=== PATIENT | female | born 1960 | race Caucasian/White ===

== ENCOUNTER 2021-08-31 11:07 | Outpatient (CLI) | payer MEDICAID, SELFPAY ==
--- NOTE | 2021-08-31 11:18 | XR_ITS ---
WS: [id number] SHOULDER RIGHT TECHNIQUE: 3 views of the right shoulder CLINICAL INFORMATION: M67.912 - Unspecified disorder of synovium and tendon, le... COMPARISON: None. FINDINGS: Multiple small lytic lesions involving the clavicle with mild cortical irregularity distally. Recomme nd further evaluation with CT. Moderate degenerative arthritis at the AC joint. Mild narrowing of sub acromial space. Normal glenohumeral joint. Visualized right lung is well aerated. XR/XR shoulder RT min 2V* [id number] IMPRESSION: 1. Multiple small lytic lesions involving the mid and distal clavicle with mil d cortical irregularity distally. Recommend further evaluation with CT. Differe ntial considerations include primary bone neoplasm, metastatic disease or multi ple myeloma. 2. Slight cortical irregularity in the distal clavicle suspicious for nondispl aced pathologic fracture. No displacement. Recommend further evaluation with CT . 3. Moderate degenerative arthritis AC joint with mild downsloping acromion.
--- NOTE | 2021-08-31 11:26 | XR_ITS ---
WS: [id number] LUMBAR SPINE TECHNIQUE: 3 views of the lumbar spine CLINICAL INFORMATION: S39.012A - Strain of muscle, fascia and tendon of lower b... COMPARISON: None. FINDINGS: L5 appears partially sacralized for the purposes of this dictation. Slight retrolisthesis L3 on L4 an d L4 on L5. No acute compression fractures. Moderate facet arthropathy L4-5 and L5-S1. Disc space vance rowing worse L5-S1. Ossification of the iliolumbar ligaments L5-S1 XR/XR lumbar spine 2-3V* [id number] IMPRESSION: 1. L5 appears partially sacralized for the purposes of this dictation. No acut e compression fractures. 2. Slight retrolisthesis L3 on L4 and L4 on L5. 3. Moderate facet arthropathy L4-L5 and L5-S1 4. Ossification of the iliolumbar ligaments L5-S1. 5. Disc space narrowing worse L5-S1.
== END 2021-08-31 11:08 | disposition home or self-care (01) ==
LOC: RAD 11:18
PROVIDERS: PCP Registered Nurse; Visit Provider Registered Nurse
DX: S39.012A Strain of muscle, fascia and tendon of lower back, initial encounter (principal); X58.XXXA Exposure to other specified factors, initial encounter; M67.912 Unspecified disorder of synovium and tendon, left shoulder; M47.816 Spondylosis without myelopathy or radiculopathy, lumbar region; M47.817 Spondylosis without myelopathy or radiculopathy, lumbosacral region; M19.011 Primary osteoarthritis, right shoulder
CPT/HCPCS: 72100; 73030

== ENCOUNTER 2021-09-03 14:11 | Outpatient (CLI) | payer MEDICAID, SELFPAY ==
--- NOTE | 2021-09-03 14:00 | CT_ITS ---
WS: [email or web address] CT SHOULDER, NONCONTRAST HISTORY: M89.9 - Disorder of bone, unspecified, RIGHT shoulder pain for 5 days. No trauma. History of smoking. Technique: All CT scans at [facility] use at least one of these dose optimization techniques: automated exposure control; mA and/or kV adjustment per patient size (includes targeted exams where dose is matched to clinical indication); or iterative reconstruction. DLP: 494.71 mGy.cm COMPARISON: Shoulder radiograph 08/31/2021. Numerous lytic lesions are identified throughout the majority of the RIGHT clavicle. Pathological fra ctures are identified. Several of these lytic areas extend through the cortex. No definite extension of soft tissue. There are additional lytic lesions within the scapula, humeral head, glenoid and the adjacent ribs. A small portion of the cervical spine is included and I suspect there are lytic change s within the cervical spine. Mildly hyperemic lymph nodes along the RIGHT cervical chain. Area of increased density within the RIG HT breast. This may be dense fibroglandular tissue or neoplasm incompletely visualized. The visualize d RIGHT upper lobe of is clear. CT/CT shoulder RT wo con* [id number] IMPRESSION: 1. Numerous lytic lesions within the bones of the RIGHT shoulder, visualized r ibs and likely the cervical spine also. Highly suspicious for metastatic diseas e with pathological fractures. 2. There are small indeterminate RIGHT cervical chain lymph nodes. Indetermina te soft tissue mass in the RIGHT breast. Evaluation for possible breast neoplas m should be considered. Recommend diagnostic mammogram evaluation. Additional e valuation of the chest, abdomen and pelvis by CT with contrast is likely necess kj. Bone scan imaging should be performed.
== END 2021-09-03 14:12 | disposition home or self-care (01) ==
LOC: RAD 14:15
PROVIDERS: PCP Registered Nurse; Visit Provider Registered Nurse
DX: M89.9 Disorder of bone, unspecified (principal); I10 Essential (primary) hypertension; N63.10 Unspecified lump in the right breast, unspecified quadrant
CPT/HCPCS: 73200; 80053; 85025; 85651; 86140; 86304

== ENCOUNTER 2021-09-11 09:59 | Outpatient (CLI) | payer OTHER, SELFPAY ==
--- NOTE | 2021-09-11 | US_ITS ---
WS: [email or web address] DIAGNOSTIC BILATERAL DIGITAL MAMMOGRAM WITH CAD Bilateral breast ultrasound, limited HISTORY: RT BREAST MASS X 2 COMPARISON: None available. TECHNIQUE: Bilateral craniocaudad, mediolateral oblique, and mediolateral views are submitted. Spot compression views RIGHT breast. Computer aided detection utilized. Breast composition: There are scattered areas of fibroglandular density. There is a large area of architectural distortion and increased density centered in the posterior superior RIGHT breast. Contiguous soft tissue spiculations involve an area measuring 9.1 x 7.6 cm. This mass is centered in the upper inner quadrant of the RIGHT breast. There may be 2 or 3 separate lesions or one branching contiguous irregular shaped mass. There is significant architectural distortion and tethering. No definite adenopathy on the RIGHT. There is a high density nodule in the upper inner quadrant of the LEFT breast which is probably a cyst or lymph node. This is well-circumscribed. Bilateral breast ultrasound, limited. Breast ultrasound is limited and very difficult. Ultrasound had to be performed with the patient in her wheelchair. RIGHT breast: Beginning at 12:00, 5 cm from the nipple is a spiculated irregular shaped mass with increased vascularity. At 1:00 there is a large area of shadowing with increased vascularity. At 1:00 is masses more isoechoic to the remaining normal breast tissue. This area measures at least 3.6 x 2.0 cm. LEFT breast: At 12:00 there is a small complex cyst posterior to the subareolar region. The posterior nodule was not visualized and may be a lymph node. MM/[place] [id number] IMPRESSION: BI-RADS: 5-Highly Suggestive of Malignancy FOLLOW UP: Biopsy Recommended 1. There is a large spiculated mass centered in the upper outer quadrant of the RIGHT breast from 12-3 o'clock. Significant distortion and tethering. Spiculations extend between the masses. This is either one large mass or several masses that have become confluent. The ultrasound did identify lesions suspicious for malignancy but the extent of tumor is better visualized by mammography. 2. No lymphadenopathy identified. 3. High density nodule in the posterior LEFT breast probably a complex cyst or lymph node. Cannot identify this by ultrasound. 4. Very difficult evaluation by ultrasound as patient requested to be done within the wheelchair due to difficulty being mobile. Notified Kayla Rueda MD at 09/11/2021 12:58 PM. DAVE
--- NOTE | 2021-09-11 10:15 | MM_ITS ---
WS: [email or web address] DIAGNOSTIC BILATERAL DIGITAL MAMMOGRAM WITH CAD Bilateral breast ultrasound, limited HISTORY: RT BREAST MASS X 2 COMPARISON: None available. TECHNIQUE: Bilateral craniocaudad, mediolateral oblique, and mediolateral views are submitted. Spot c ompression views RIGHT breast. Computer aided detection utilized. Breast composition: There are scattered areas of fibroglandular density. There is a large area of arc hitectural distortion and increased density centered in the posterior superior RIGHT breast. Contiguo us soft tissue spiculations involve an area measuring 9.1 x 7.6 cm. This mass is centered in the upp er inner quadrant of the RIGHT breast. There may be 2 or 3 separate lesions or one branching contiguo us irregular shaped mass. There is significant architectural distortion and tethering. No definite ad enopathy on the RIGHT. There is a high density nodule in the upper inner quadrant of the LEFT breast which is probably a cys t or lymph node. This is well-circumscribed. Bilateral breast ultrasound, limited. Breast ultrasound is limited and very difficult. Ultrasound had to be performed with the patient in h er wheelchair. RIGHT breast: Beginning at 12:00, 5 cm from the nipple is a spiculated irregular shaped mass with inc reased vascularity. At 1:00 there is a large area of shadowing with increased vascularity. At 1:00 is masses more isoechoic to the remaining normal breast tissue. This area measures at least 3.6 x 2.0 c m. LEFT breast: At 12:00 there is a small complex cyst posterior to the subareolar region. The posterior nodule was not visualized and may be a lymph node. MM/[place] [id number] IMPRESSION: BI-RADS: 5-Highly Suggestive of Malignancy FOLLOW UP: Biopsy Recommended 1. There is a large spiculated mass centered in the upper outer quadrant of th e RIGHT breast from 12-3 o'clock. Significant distortion and tethering. Spicula tions extend between the masses. This is either one large mass or several jayshree s that have become confluent. The ultrasound did identify lesions suspicious fo r malignancy but the extent of tumor is better visualized by mammography. 2. No lymphadenopathy identified. 3. High density nodule in the posterior LEFT breast probably a complex cyst or lymph node. Cannot identify this by ultrasound. 4. Very difficult evaluation by ultrasound as patient requested to be done wit hin the wheelchair due to difficulty being mobile. Notified Kayla Rueda MD at 09/11/2021 12:58 PM.
== END 2021-09-11 10:00 | disposition home or self-care (01) ==
LOC: RADSHAW 10:02
PROVIDERS: PCP Registered Nurse
DX: N63.22 Unspecified lump in the left breast, upper inner quadrant (principal); N63.15 Unspecified lump in the right breast, overlapping quadrants
CPT/HCPCS: 76642; 77066

== ENCOUNTER 2021-09-27 07:47 | Outpatient (CLI) | payer MEDICAID, SELFPAY ==
--- NOTE | 2021-09-27 | US_ITS ---
WS: [email or web address] ULTRASOUND-GUIDED RIGHT BREAST BIOPSY HISTORY: LUMP IN BREAST COMPARISON: 09/11/2021 mammogram and ultrasound. Procedure, risks and complications are explained to the patient. Medications are reviewed. Consent is obtained. Spiculated irregular mass in the upper-outer quadrant of the RIGHT breast. This may be separate confl uent masses or a single spiculated branching mass. Biopsy will be performed at the 12:00 component an d the 1:00 component of this mass. Masses are localized with ultrasound. Skin is cleansed with Chlora Prep and anesthetized with 1% buffered lidocaine. Small dermatome is made. Under sterile conditions e ach mass is biopsied with a 14-gauge Achieve needle. Only 2 core biopsies are performed of each mass. There was significant bleeding after the biopsy at 12:00. No bleeding after the mass at 1:00. Materi al placed in formalin and sent to pathology for review. No complications encountered. Breast tissue marker (Bard ultrasound enhanced ribbon): Yes, clips are placed within each mass. Patient left the radiology suite with no complications. Patient is instructed to return to [facility] or [facility] with any concerns. US/[place] [id number] IMPRESSION: 1. Core needle biopsy mass at 12:00. PATHOLOGY: Invasive ductal carcinoma. Biomarkers to be reported separately. RECOMMENDATION: Follow-up with breast surgeon and oncology. 2. Uncomplicated core needle biopsy mass at 1:00. PATHOLOGY: Invasive ductal carcinoma. Biomarkers to be reported separately. RECOMMENDATION: Follow-up with breast surgeon and oncology.
--- NOTE | 2021-09-27 07:55 | US_ITS ---
WS: [email or web address] ULTRASOUND-GUIDED RIGHT BREAST BIOPSY HISTORY: LUMP IN BREAST COMPARISON: 09/11/2021 mammogram and ultrasound. Procedure, risks and complications are explained to the patient. Medications are reviewed. Consent is obtained. Spiculated irregular mass in the upper-outer quadrant of the RIGHT breast. This may be separate confl uent masses or a single spiculated branching mass. Biopsy will be performed at the 12:00 component an d the 1:00 component of this mass. Masses are localized with ultrasound. Skin is cleansed with Chlora Prep and anesthetized with 1% buffered lidocaine. Small dermatome is made. Under sterile conditions e ach mass is biopsied with a 14-gauge Achieve needle. Only 2 core biopsies are performed of each mass. There was significant bleeding after the biopsy at 12:00. No bleeding after the mass at 1:00. Materi al placed in formalin and sent to pathology for review. No complications encountered. Breast tissue marker (Bard ultrasound enhanced ribbon): Yes, clips are placed within each mass. Patient left the radiology suite with no complications. Patient is instructed to return to [facility] [place] or [facility] with any concerns. US/[place] [id number] IMPRESSION: 1. Core needle biopsy mass at 12:00. PATHOLOGY: Invasive ductal carcinoma. Biomarkers to be reported separately. RECOMMENDATION: Follow-up with breast surgeon and oncology. 2. Uncomplicated core needle biopsy mass at 1:00. PATHOLOGY: Invasive ductal carcinoma. Biomarkers to be reported separately. RECOMMENDATION: Follow-up with breast surgeon and oncology.
[2021-10-04 13:35] LABS: Miscellaneous Test See Scanned Lab Rpt
== END 2021-09-27 07:48 | disposition home or self-care (01) ==
LOC: RAD 07:49
PROVIDERS: PCP Registered Nurse; Visit Provider Family Medicine
DX: C50.811 Malignant neoplasm of overlapping sites of right female breast (principal); C50.211 Malignant neoplasm of upper-inner quadrant of right female breast
CPT/HCPCS: 19083; 19084; 88305; 88361; 88374

== ENCOUNTER 2021-10-03 11:18 | Outpatient (CLI) | payer MEDICAID, SELFPAY ==
--- NOTE | 2021-10-03 17:50 | ONC CON_ITS ---
Dr. Vega New Patient Note Patient: Isi Ross Unit #: [id number]: 1960 Dicatated By: Matthew Vega M.D.Date of Visit: Oct 03, 2021 Onc MED New Patient/Consult Referring Physician: JULIANNE CAMARA A.P.N. Chief Complaint: Breast cancer. History of Present Illness: This is a 61-year-old woman with grade 3 invasive ductal carcinoma of the right breast, denovo stage IV by clinical evaluation (T3, N0, M1), ER/KY positive and HER-2/todd negative. In June 2021 she had presented with complaints of right shoulder pain. She also had become aware of a swelling in her right breast, thought to be most likely a cyst. In August 2021 she presented with lower back pain and pain in the area between her shoulder blades. X-rays of the right shoulder and lumbar spine on 08/31/2021 showed multiple small lytic lesions in the mid and distal right clavicle suspicious for metastatic disease or myeloma. There were degenerative changes in the lumbar spine. Her CT of the right shoulder on 09/03/2021 showed numerous lytic lesions within the bones of the right shoulder, visualized ribs, and likely cervical spine, highly suspicious for metastatic disease. Diagnostic mammogram/ultrasound of the right breast on 09/11/2021 showed a large area of architectural distortion in the posterior superior right breast with contiguous soft tissue spiculations involving an area measuring 9.1 x 7.6 cm. A high density nodule in the upper inner quadrant of the left breast was thought to be most likely a cyst or lymph node. On 09/27/2021 she underwent ultrasound-guided biopsies of the right breast at 1:00 and at 12:00. The 12:00 lesion showed grade 1 invasive ductal carcinoma. The 1:00 lesion showed grade 3 invasive ductal carcinoma. Breast prognostic profile on the 1:00 lesion showed ER positive at 98% and KY positive at 95%. The tumor was negative for overexpression of HER-2/todd, 1+ by IHC and amplification ratio by FISH of 1.1 with 2.2 HER-2 copies/cell. The Ki-67 was just slightly high at 15%. In the meantime, restaging PET/CT on 09/18/2021 showed extensive heterogeneous activity throughout the axial and appendicular skeleton correlating with mixed sclerotic and cystic appearance on the CT scan, consistent with bony metastatic involvement. There was low-level abnormal activity associated with a right breast mass consistent with low-grade breast cancer. There was additional finding of low-level activity associated with what appeared to be some thickening or soft tissue mass involving the bowel in the right lower quadrant of the abdomen at the level of the terminal ileum or cecum. She is seen now for further management. Her main complaint has been the right shoulder pain, though she has been getting reasonably good relief taking tramadol once or twice a day. However, this morning she woke up with pain in her neck and she had subsequently developed more severe pain in the area between her shoulder blades. At times it has been excruciating. She still has pretty good energy, though it has not been normal. Her ECOG score is 1. She has good appetite. Her weight is down just a few pounds. She has not had fever or night sweats. She has always had a tendency to get a little hot, but she has not had actual hot flashes. She has not had sore mouth or throat, and she does not complain of cough. She has not been having shortness of breath. She has had some chest discomfort following the biopsy, but she otherwise has not had chest pain. She has no GI or complaints. She does not complain of headache or dizziness, and she has no focal neurologic symptoms. Past Medical History: Her medical history consists of history of COVID-19 virus infection in March 2021, hypertension, positional vertigo, and vitamin D deficiency. Past Surgical History: Her surgical/procedural history includes ultrasound-guided biopsy of the right breast in 2021 and brain surgery to remove posttraumatic blood clot at age 12. Medications: Acetaminophen 2 Tablet (of 500 mg) Oral q 4 hours, Baclofen 1 Tablet (of 10 mg) Oral b.i.d., Cephalexin (500 mg) Capsule Oral Take as Directed, diazePAM (2 mg) Tablet Oral Take as Directed, Ibuprofen (600 mg) Tablet Oral Take as Directed, Lisinopril 1 Tablet (of 10 mg) Oral daily, traMADol HCl 1 Tablet (of 50 mg) Oral b.i.d. PRN Allergies: Amoxicillin Social History: Ms. Ross is . 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 She had smoked all her life , but off and on, and less than 1 pack of cigarettes daily. She quit smoking cigarettes 7 years ago, and she has since then smoked e-cigarettes. She has only rare alcohol use. Family History: Parents are still living, both at age 79 and both are in good health. Two sisters also are in good health. Review Of Symptoms: Constitutional - Her energy is pretty good, though not normal. She is limiting her activity. Her appetite is good. Her weight is down a couple pounds. She has not had fever or night sweats. She has always been prone to getting hot, but she does not have actual hot flashes. ECOG score is 1, Eyes - No change in vision, ENMT - No hearing loss or tinnitus. No sinus congestion/drainage. No mouth sores. No sore throat or difficulty swallowing, Hematologic/Lymphatic - She has developed significant bruising at her biopsy site. She has had no other bleeding manifestations, Respiratory - No shortness of breath. No cough. No pleuritic pain or hemoptysis, Cardiovascular - She is having some discomfort in the right chest area following the recent biopsy. She otherwise has not had chest pain and she has no palpitations, Gastrointestinal - No nausea or vomiting. No heartburn or acid reflux. No diarrhea or constipation. No blood in the stool or black stools, Genitourinary (F) - No dysuria or hematuria. No urinary frequency. No urgency or incontinence, Musculoskeletal - She has been having pain in the right shoulder area and today she developed some new pain at the bottom of her neck/upper back, Integumentary - No skin rash or other skin changes, Neurologic - No headache or dizziness. No numbness or tingling. No other focal neurologic symptoms, Psychiatric - No anxiety or depression. She has had some difficulty sleeping with the pain. Vital Signs: Performed on Oct 03, 2021 13:23: 64.50 in, 172/97 mm(hg) (HIGH), Performed on Oct 03, 2021 13:22: 5, 9, 43.47 (HIGH), 2.19 sq.m, 97 %, 93 /min, 16 /min, 98.5 F, and 257.2 lbs (HIGH). Physical Examination: Constitutional - She has limited mobility, but she otherwise looks pretty good generally, Eyes - Sclerae nonicteric. Conjunctivae clear, ENMT - No lesions noted in the oral cavity, Neck - No mass or thyromegaly, Hematologic/Lymphatic - No cervical or clavicular adenopathy, Respiratory - Lungs are clear with good air movement bilaterally, Cardiovascular - Heart rhythm is regular. There is no murmur, gallop, or rub noted, Breasts - There is a fairly large area of ecchymosis in the right breast. There is a mass palpable in the superior right breast extending to the right of the midline. It measures approximately 6 cm in diameter. The left breast shows no mass. There is no axillary adenopathy noted, Abdomen - Moderately distended. Liver and spleen are not enlarged. There is no abdominal mass or ascites noted and there is no inguinal adenopathy, Back/Spine - There is focal bony tenderness at the level of the lower cervical spine, Extremities - No edema. Pedal pulses are palpable bilaterally, Integumentary - No rashes. No suspicious skin lesions noted, Neurologic - No focal neurologic deficits noted. Lab/Imaging: Her laboratory studies from 09/03/2021 included CBC showing hemoglobin 13.2 g, white blood count 11,400, and platelet count 367,000. Comprehensive metabolic profile showed normal renal function with BUN 13 and creatinine 0.8 mg/dL. Bilirubin was normal at 0.5 mg/dL, and the SGOT and SGPT levels were normal. The alkaline phosphatase was elevated at 225/105 IU/L. Problem List: 1. Grade 3 invasive ductal carcinoma of the right breast, by clinical evaluation stage IV (T3, N0, M1), ER/KY positive and HER-2 negative. 2. Recent onset of hypertension. 3. Vitamin D deficiency. 4. History of positional vertigo. 5. History of COVID-19 virus infection in March 2021. Problems Addressed with this Encounter and Plan: 1. Patient with grade 3 invasive ductal carcinoma of the right breast, ER/KY positive and HER-2 negative. By clinical evaluation she has denovo stage IV disease (T3, N0, M1) with PET/CT evidence of extensive metastatic bone involvement. She is symptomatic in the right shoulder area and more significantly now in the lower cervical/upper thoracic spine area. The PET/CT findings and images were reviewed with the patient. I also reviewed the biopsy results, and we discussed the clinical implications. She has metastatic breast cancer with PET/CT evidence of extensive bone involvement. I am particularly concerned about the pain she is having in her neck and upper back, and I am going to request further evaluation of that area with MRI, as she potentially would benefit with palliative radiation to that area and to the right shoulder. In the meantime, I will proceed with arrangements to begin systemic therapy with letrozole 2.5 mg daily in combination with ribociclib 600 mg twice daily, subject to verification of insurance coverage. She also will need to begin monthly denosumab injections for the metastatic bone involvement. I did review potential side effects with the aromatase inhibitor, including hot flashes, mood changes, osteoporosis, and joint pain, among others. Potential side effects with the ribociclib include fatigue, diarrhea, low blood counts, hepatic dysfunction, and cardiac arrhythmia, among others. She will have baseline EKG today. I will have her see Dr. Yap when the MRI has been completed. In the meantime, she is given a prescription for oxycodone 10 mg to take up to 4 times daily as needed. 2. There was also PET/CT evidence of low level activity in association with apparent thickening or soft tissue mass involving the bowel in the right lower quadrant of the abdomen at the level of the terminal ileum or cecum. The significance of that finding is uncertain, but in this setting and with no associated symptoms, further evaluation will be deferred. Signed By: Matthew Vega M.D. <<Signature on File>>
== END 2021-10-03 11:19 | disposition home or self-care (01) ==
PROVIDERS: PCP Registered Nurse; Visit Provider Internal Medicine Medical Oncology
DX: C50.211 Malignant neoplasm of upper-inner quadrant of right female breast (principal); I10 Essential (primary) hypertension; E55.9 Vitamin D deficiency, unspecified; R42 Dizziness and giddiness; F17.290 Nicotine dependence, other tobacco product, uncomplicated; Z79.899 Other long term (current) drug therapy; Z86.16 Personal history of COVID-19
CPT/HCPCS: 99205

== ENCOUNTER 2021-10-31 09:23 | Outpatient (CLI) | payer MEDICAID, SELFPAY ==
[2021-10-31 10:43] LABS: Basophils # 0.1 10^3/uL (0.0-0.1); Basophils % 0.9 %; Eosinophils # 0.1 10^3/uL (0.0-0.8); Eosinophils % 1.2 %; Hematocrit 44.2 % (37.0-47.0); Hemoglobin 14.1 g/dL (11.5-15.3); Lymphocytes # 3.7 10^3/uL (0.8-4.8); Lymphocytes % 34.5 %; Mean Corpuscular HGB Conc 31.9 g/dL (30.0-36.0); Mean Corpuscular Hemoglobin 28.1 pg (28.0-34.0); Mean Platelet Volume 9.9 fL (7.4-10.4); Monocytes # 0.5 10^3/uL (0.2-0.9); Monocytes % 4.3 %; Neutrophils # 6.23 10^3/uL (1.8-7.7); Neutrophils % 57.5 %; Nucleated Red Blood Cells % 0 %; Platelet Count 362 10^3/cmm (130-400); Red Blood Count 5.02 10^6/uL (4.1-5.3); Red Cell Distribution Width 14.7 % (12.1-15.1); White Blood Count 10.8 10^3/uL (4.0-10.0)
[2021-10-31 11:21] LABS: Alanine Aminotransferase 116 U/L (0-33); Albumin Level 4.1 g/dL (3.5-5.2); Alkaline Phosphatase 444 IU/L (35-105); Anion Gap 19.8 (5-19); Aspartate Amino Transferase 96 U/L (0-32); Blood Urea Nitrogen 13 mg/dL (6-20); Calcium 10.3 mg/dL (8.5-10.5); Carbon Dioxide 20 mmol/L (22-29); Chloride 95 mmol/L (98-107); Globulin 3.6 g/dL (1.3-4.6); Glomerular Filtration Rate 64.1 mL/min (90-130); Glucose 148 mg/dL (65-115); Osmolality Calculated 275 mOsm/kg (285-295); Potassium 3.8 mmol/L (3.5-5.1); Sodium 131 mmol/L (136-145); Total Bilirubin 0.7 mg/dL (0.15-1.2); Total Protein 7.7 g/dL (6.6-8.7)
[2021-10-31 11:42] LABS: CA 15-3 495.9 U/mL (0-25)
[2021-10-31] MEDS: denosumab 120 mg SDV SUBCUT (12:18)
--- NOTE | 2021-11-04 20:59 | ONC FU_ITS ---
Shoshana Clark Progress Note Patient: Isi Ross Unit #: [id number]: 1960 Dicatated By: Shoshana Clark N.P.Date of Visit:Oct 31, 2021 Onc MED Follow-up/Prog Note Chief Complaint: Breast cancer. History of Present Illness: This is a 61-year-old woman with grade 3 invasive ductal carcinoma of the right breast, denovo stage IV by clinical evaluation (T3, N0, M1), ER/NY positive and HER-2/todd negative. In June 2021 she had presented with complaints of right shoulder pain. She also had become aware of a swelling in her right breast, thought to be most likely a cyst. In August 2021 she presented with lower back pain and pain in the area between her shoulder blades. X-rays of the right shoulder and lumbar spine on 08/31/2021 showed multiple small lytic lesions in the mid and distal right clavicle suspicious for metastatic disease or myeloma. There were degenerative changes in the lumbar spine. Her CT of the right shoulder on 09/03/2021 showed numerous lytic lesions within the bones of the right shoulder, visualized ribs, and likely cervical spine, highly suspicious for metastatic disease. Diagnostic mammogram/ultrasound of the right breast on 09/11/2021 showed a large area of architectural distortion in the posterior superior right breast with contiguous soft tissue spiculations involving an area measuring 9.1 x 7.6 cm. A high density nodule in the upper inner quadrant of the left breast was thought to be most likely a cyst or lymph node. On 09/27/2021 she underwent ultrasound-guided biopsies of the right breast at 1:00 and at 12:00. The 12:00 lesion showed grade 1 invasive ductal carcinoma. The 1:00 lesion showed grade 3 invasive ductal carcinoma. Breast prognostic profile on the 1:00 lesion showed ER positive at 98% and [place] positive at 95%. The tumor was negative for overexpression of HER-2/todd, 1+ by IHC and amplification ratio by FISH of 1.1 with 2.2 HER-2 copies/cell. The Ki-67 was just slightly high at 15%. In the meantime, restaging PET/CT on 09/18/2021 showed extensive heterogeneous activity throughout the axial and appendicular skeleton correlating with mixed sclerotic and cystic appearance on the CT scan, consistent with bony metastatic involvement. There was low-level abnormal activity associated with a right breast mass consistent with low-grade breast cancer. There was additional finding of low-level activity associated with what appeared to be some thickening or soft tissue mass involving the bowel in the right lower quadrant of the abdomen at the level of the terminal ileum or cecum. Patient presents today for education on arrival cycle of ribociclib and letrozole. She states that she has been feeling pretty good. Her appetite has been good. She denies fever, chills, night sweats. No shortness of breath, cough, chest pain. No GI or problems. She continues to have shoulder pain and upper back pain that is controlled with her current pain medications. She denies headache or dizziness. Review Of Symptoms: see above. Past Medical History: History of COVID-19 virus infection in March 2021 Hypertension Positional vertigo Vitamin D deficiency Past Surgical History: Ultrasound-guided biopsy of the right breast in 2021 Brain surgery to remove posttraumatic blood clot in 1972 Allergies: Amoxicillin Medications: Baclofen 1 Tablet (of 10 mg) Oral b.i.d. Lisinopril 1 Tablet (of 10 mg) Oral daily oxyCODONE HCl 1 Tablet (of 10 mg) Oral four times a day PRN Vitamin D 1 Tablet Oral daily Family History: Parents are still living, both at age 79 and both are in good health. Two sisters also are in good health. Social History: Ms. Ross is . Ms. Ross no longer smokes. She drinks occasionally. She has indicated exposure to the following products: e-cigarettes. 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 She had smoked all her life , but off and on, and less than 1 pack of cigarettes daily. She quit smoking cigarettes 7 years ago, and she has since then smoked e-cigarettes. She has only rare alcohol use. Physical Examination: Performed on Oct 31, 2021 15:11: Height - 64.50 in, Weight - 242.2 lbs (LOW), BSA - 2.13 sq.m, BMI - 40.93 (HIGH), Temperature - 98.6 F, Pulse - 99 /min, Respiration - 16 /min, BP - 150/88 mm(hg) (HIGH), O2 Sat - 97 %, Pain - 0, and Fatigue - 5. Performance Status: 0 - Fully active, able to carry on all predisease activities without restrictions. (ECOG) Constitutional Alert, cooperative, oriented. Mood and affect appropriate. Appears close to chronological age. Well nourished. Well developed. Head Normocephalic; no scars. Respiratory Lungs are clear to auscultation without rhonchi or wheezing. Cardiovascular Regular rate and rhythm of heart without murmurs, gallops or rubs. Abdomen Non-tender, non-distended, no masses, ascites or hepatosplenomegaly. Good bowel sounds. No guarding or rebound tenderness. Extremities No edema Musculoskeletal No tenderness or swelling, normal range of motion without obvious weakness. Psychiatric Alert and oriented times three. Coherent speech. Verbalizes understanding of our discussions today. Laboratory: Test performed on Oct 31, 2021 10:00 Sodium 131 mmol/L Potassium 3.8 mmol/L Chloride 95 mmol/L CO2 20 mmol/L Anion Gap 19.8 BUN 13 mg/dL Creatinine 0.9 mg/dL Cr Clearance (Est) 116.73 mL/min eGFR 64.1 mL/min Glucose 148 mg/dL Osmolality - Calculated 275 mOsm/kg Calcium 10.3 mg/dL Protein, Total 7.7 g/dL Albumin 4.1 g/dL Globulin 3.6 g/dL Bilirubin, Total 0.7 mg/dL ALT (SGPT) 116 U/L AST (SGOT) 96 U/L Alkaline Phosphatase 444 IU/L WBC 10.8 10 3/uL RBC 5.02 10 6/uL HGB 14.1 g/dL HCT 44.2 % MCV 88.0 fl MCH 28.1 pg MCHC 31.9 g/dL RDW 14.7 % Platelet Count 362 10 3/cmm MPV 9.9 fL Neutrophils 6.23 10 3/uL Lymphocytes 3.7 10 3/uL Monocytes 0.5 10 3/uL Eosinophils 0.1 10 3/uL Basophils 0.1 10 3/uL Neutrophil % 57.5 % Lymphocyte % 34.5 % Monocyte % 4.3 % Eosinophil % 1.2 % Basophils % 0.9 % NRBC % 0 % CA 15-3 495.9 U/mL Impression: 1. Grade 3 invasive ductal carcinoma of the right breast, by clinical evaluation stage IV (T3, N0, M1), ER/[place] positive and HER-2 negative. 2. Recent onset of hypertension. 3. Vitamin D deficiency. 4. History of positional vertigo. 5. History of COVID-19 virus infection in March 2021. Plan: 1. Patient with grade 3 invasive ductal carcinoma of the right breast, ER/NY positive and HER-2 negative. By clinical evaluation she has denovo stage IV disease (T3, N0, M1) with PET/CT evidence of extensive metastatic bone involvement. She is symptomatic in the right shoulder area and more significantly now in the lower cervical/upper thoracic spine area. The PET/CT findings and images were reviewed with the patient. Dr. Vega also reviewed the biopsy results, and we discussed the clinical implications. She has metastatic breast cancer with PET/CT evidence of extensive bone involvement. He is particularly concerned about the pain she is having in her neck and upper back, and she will have further evaluation of that area with MRI, as she potentially would benefit with palliative radiation to that area and to the right shoulder. She presents today for education on letrozole 2.5 mg daily in combination with ribociclib 600 mg twice daily. Handouts on both medications were provided. Potential side effects of an aromatase inhibitor were discussed including hot flashes, mood changes, and joint pain. We also discussed side effects of ribociclib including fatigue, diarrhea, low blood counts and cardiac arrhythmias which will be monitored with the EKGs every 2 weeks x 4 weeks. She will also receive her first injection denosumab today for metastatic bone involvement. A referral has been placed for patient to see Dr. Yap in radiation oncology for metastatic bone pain. 2. There was also PET/CT evidence of low level activity in association with apparent thickening or soft tissue mass involving the bowel in the right lower quadrant of the abdomen at the level of the terminal ileum or cecum. The significance of that finding is uncertain, but in this setting and with no associated symptoms, further evaluation will be deferred. Signed By: Shoshana Clark N.P. <<Signature on File>>
== END 2021-10-31 09:24 | disposition home or self-care (01) ==
PROVIDERS: PCP Registered Nurse; Visit Provider Nurse Practitioner Family
DX: C50.911 Malignant neoplasm of unspecified site of right female breast (principal); Z17.0 Estrogen receptor positive status [ER+]; C79.51 Secondary malignant neoplasm of bone; I10 Essential (primary) hypertension; E55.9 Vitamin D deficiency, unspecified; Z86.16 Personal history of COVID-19; Z79.899 Other long term (current) drug therapy
CPT/HCPCS: 36415; 80053; 85025; 86300; 96372; 99215; J0897

== ENCOUNTER 2021-11-09 10:29 | Outpatient (CLI) | payer MEDICAID, SELFPAY ==
--- NOTE | 2021-11-09 13:04 | ECG_ITS ---
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 Measurements Intervals [place] Rate: 78 P: 20 CA: 177 QRS: 14 QRSD: 103 T: -11 QT: 367 QTc: 419 Interpretive Statements SINUS RHYTHM No previous ECG available for comparison Electronically Signed On 11-09-2021 16:10:21 CDT by Good Hopkins M.D. [id number]
== END 2021-11-09 10:30 | disposition home or self-care (01) ==
PROVIDERS: PCP Registered Nurse; Visit Provider Internal Medicine Medical Oncology
DX: C50.411 Malignant neoplasm of upper-outer quadrant of right female breast (principal); C79.51 Secondary malignant neoplasm of bone
CPT/HCPCS: 93005

== ENCOUNTER 2021-11-21 07:49 | Outpatient (CLI) | payer MEDICAID, SELFPAY ==
[2021-11-21 08:59] LABS: Basophils % 1.1 %; Eosinophils % 0.8 %; Hematocrit 39.2 % (37.0-47.0); Hemoglobin 12.7 g/dL (11.5-15.3); Lymphocytes # 1.9 10^3/uL (0.8-4.8); Mean Corpuscular HGB Conc 32.4 g/dL (30.0-36.0); Mean Corpuscular Volume 89.5 fl (81-99); Monocytes # 0.2 10^3/uL (0.2-0.9); Neutrophils # 1.62 10^3/uL (1.8-7.7); Neutrophils % 43.3 %; Nucleated Red Blood Cells % 0 %; Platelet Count 233 10^3/cmm (130-400); Red Blood Count 4.38 10^6/uL (4.1-5.3); Red Cell Distribution Width 17.2 % (12.1-15.1); White Blood Count 3.7 10^3/uL (4.0-10.0)
[2021-11-21 09:30] LABS: Alanine Aminotransferase 26 U/L (0-33); Albumin Level 4.1 g/dL (3.5-5.2); Alkaline Phosphatase 347 IU/L (35-105); Anion Gap 18.5 (5-19); Aspartate Amino Transferase 29 U/L (0-32); Blood Urea Nitrogen 14 mg/dL (6-20); Calcium 8.7 mg/dL (8.5-10.5); Carbon Dioxide 20 mmol/L (22-29); Chloride 100 mmol/L (98-107); Chol HDL Ratio 3.41 mg/dL (0.0-4.40); Cholesterol 150 mg/dL (0-200); Globulin 3.8 g/dL (1.3-4.6); Glomerular Filtration Rate 64.1 mL/min (90-130); Glucose 122 mg/dL (65-115); HDL Cholesterol 44 mg/dL (60-100); LDL Cholesterol Calculated 82 mg/dL (50-129); LDL HDL Ratio 1.86 RATIO (0.00-3.22); Osmolality Calculated 280 mOsm/kg (285-295); Potassium 4.5 mmol/L (3.5-5.1); Sodium 134 mmol/L (136-145); Total Bilirubin 0.5 mg/dL (0.15-1.2); Total Protein 7.9 g/dL (6.6-8.7); Triglycerides 118 mg/dL (0-150)
[2021-11-21 09:52] LABS: CA 15-3 332.8 U/mL (0-25)
--- NOTE | 2021-11-26 09:50 | ONC FU_ITS ---
Shoshana Clark Progress Note Patient: Isi Ross Unit #: [id number]: 1960 Dicatated By: Shoshana Clark N.P.Date of Visit:Nov 21, 2021 Onc MED Follow-up/Prog Note Chief Complaint: Breast cancer. History of Present Illness: This is a 61-year-old woman with grade 3 invasive ductal carcinoma of the right breast, denovo stage IV by clinical evaluation (T3, N0, M1), ER/IL positive and HER-2/todd negative. In June 2021 she had presented with complaints of right shoulder pain. She also had become aware of a swelling in her right breast, thought to be most likely a cyst. In August 2021 she presented with lower back pain and pain in the area between her shoulder blades. X-rays of the right shoulder and lumbar spine on 08/31/2021 showed multiple small lytic lesions in the mid and distal right clavicle suspicious for metastatic disease or myeloma. There were degenerative changes in the lumbar spine. Her CT of the right shoulder on 09/03/2021 showed numerous lytic lesions within the bones of the right shoulder, visualized ribs, and likely cervical spine, highly suspicious for metastatic disease. Diagnostic mammogram/ultrasound of the right breast on 09/11/2021 showed a large area of architectural distortion in the posterior superior right breast with contiguous soft tissue spiculations involving an area measuring 9.1 x 7.6 cm. A high density nodule in the upper inner quadrant of the left breast was thought to be most likely a cyst or lymph node. On 09/27/2021 she underwent ultrasound-guided biopsies of the right breast at 1:00 and at 12:00. The 12:00 lesion showed grade 1 invasive ductal carcinoma. The 1:00 lesion showed grade 3 invasive ductal carcinoma. Breast prognostic profile on the 1:00 lesion showed ER positive at 98% and IL positive at 95%. The tumor was negative for overexpression of HER-2/todd, 1+ by IHC and amplification ratio by FISH of 1.1 with 2.2 HER-2 copies/cell. The Ki-67 was just slightly high at 15%. In the meantime, restaging PET/CT on 09/18/2021 showed extensive heterogeneous activity throughout the axial and appendicular skeleton correlating with mixed sclerotic and cystic appearance on the CT scan, consistent with bony metastatic involvement. There was low-level abnormal activity associated with a right breast mass consistent with low-grade breast cancer. There was additional finding of low-level activity associated with what appeared to be some thickening or soft tissue mass involving the bowel in the right lower quadrant of the abdomen at the level of the terminal ileum or cecum. Patient presents today for follow-up. She states that she has been doing fairly well. She she complains week. Her appetite has been good. She denies fever, chills, night sweats. She is experiencing symptoms of allergies such as clear nasal drainage. She denies shortness of breath, cough, chest pain. He denies nausea or vomiting. But she has been having some trouble with constipation which is controlled with [id number] medications. No urinary symptoms. She has some pain in the right chest wall that radiates over to the axilla. She is started letrozole 2.5 mg in combination with ribociclib 600 mg daily. She states that she is tolerating that well. Review Of Symptoms: See above. Past Medical History: History of COVID-19 virus infection in March 2021 Hypertension Positional vertigo Vitamin D deficiency Past Surgical History: Ultrasound-guided biopsy of the right breast in 2021 Brain surgery to remove posttraumatic blood clot in 1972 Allergies: Amoxicillin Medications: Baclofen 1 Tablet (of 10 mg) Oral b.i.d. Lisinopril 1 Tablet (of 10 mg) Oral daily Magnesium Citrate Solution Oral Take as Directed Ondansetron 1 Tablet (of 4 mg) Tablet Dispersable Oral q 8 hours PRN oxyCODONE HCl 1 Tablet (of 10 mg) Oral four times a day PRN Senna S 2 Tablet Oral b.i.d. Vitamin D 1 Tablet Oral daily Family History: Parents are still living, both at age 79 and both are in good health. Two sisters also are in good health. Social History: Ms. Ross is . Ms. Ross no longer smokes. She drinks occasionally. She has indicated exposure to the following products: e-cigarettes. 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 She had smoked all her life , but off and on, and less than 1 pack of cigarettes daily. She quit smoking cigarettes 7 years ago, and she has since then smoked e-cigarettes. She has only rare alcohol use. Physical Examination: Performed on Nov 21, 2021 09:45: Height - 64.50 in, Weight - 243.4 lbs (HIGH), BSA - 2.14 sq.m, BMI - 41.13 (HIGH), Temperature - 98.0 F (LOW), Pulse - 97 /min, Respiration - 18 /min, BP - 154/85 mm(hg) (HIGH), O2 Sat - 96 %, Pain - 6, and Fatigue - 7. Performance Status: 0 - Fully active, able to carry on all predisease activities without restrictions. (ECOG) Constitutional Alert, cooperative, oriented. Mood and affect appropriate. Appears close to chronological age. Well nourished. Well developed. Head Normocephalic; no scars. Respiratory Lungs are clear to auscultation without rhonchi or wheezing. Cardiovascular Regular rate and rhythm of heart without murmurs, gallops or rubs. Abdomen Non-tender, non-distended, no masses, ascites or hepatosplenomegaly. Good bowel sounds. No guarding or rebound tenderness. Musculoskeletal Tenderness right chest wall that radiates to axilla Psychiatric Alert and oriented times three. Coherent speech. Verbalizes understanding of our discussions today. Laboratory: Test performed on Nov 21, 2021 08:28 Cholesterol, Total 150 mg/dL Sodium 134 mmol/L Potassium 4.5 mmol/L Triglycerides 118 mg/dL Chloride 100 mmol/L LDL Cholesterol 82 mg/dL CO2 20 mmol/L Anion Gap 18.5 HDL Cholesterol 44 mg/dL BUN 14 mg/dL Cholesterol/HDL Ratio 3.41 mg/dL Creatinine 0.9 mg/dL LDL / HDL Ratio 1.86 RATIO Cr Clearance (Est) 117.3100 mL/min eGFR 64.1 mL/min Glucose 122 mg/dL Osmolality - Calculated 280 mOsm/kg Calcium 8.7 mg/dL Protein, Total 7.9 g/dL Albumin 4.1 g/dL Globulin 3.8 g/dL Bilirubin, Total 0.5 mg/dL ALT (SGPT) 26 U/L AST (SGOT) 29 U/L Alkaline Phosphatase 347 IU/L WBC 3.7 10 3/uL RBC 4.38 10 6/uL HGB 12.7 g/dL HCT 39.2 % MCV 89.5 fl MCH 29.0 pg MCHC 32.4 g/dL RDW 17.2 % Platelet Count 233 10 3/cmm MPV 9.0 fL Neutrophils 1.62 10 3/uL Lymphocytes 1.9 10 3/uL Monocytes 0.2 10 3/uL Eosinophils 0.0 10 3/uL Basophils 0.0 10 3/uL Neutrophil % 43.3 % Lymphocyte % 50.0 % Monocyte % 4.0 % Eosinophil % 0.8 % Basophils % 1.1 % NRBC % 0 % CA 15-3 332.8 U/mL Impression: 1. Grade 3 invasive ductal carcinoma of the right breast, by clinical evaluation stage IV (T3, N0, M1), ER/IL positive and HER-2 negative. 2. Recent onset of hypertension. 3. Vitamin D deficiency. 4. History of positional vertigo. 5. History of COVID-19 virus infection in March 2021. Plan: 1. Patient with grade 3 invasive ductal carcinoma of the right breast, ER/IL positive and HER-2 negative. By clinical evaluation she has denovo stage IV disease (T3, N0, M1) with PET/CT evidence of extensive metastatic bone involvement. She is symptomatic in the right shoulder area and more significantly now in the lower cervical/upper thoracic spine area. The PET/CT findings and images were reviewed with the patient. Dr. Vega also reviewed the biopsy results, and we discussed the clinical implications. She has metastatic breast cancer with PET/CT evidence of extensive bone involvement. He is particularly concerned about the pain she is having in her neck and upper back, and she will have further evaluation of that area with MRI, as she potentially would benefit with palliative radiation to that area and to the right shoulder. Patient presents today for follow-up after starting letrozole 2.5 mg and ribociclib 600 mg p.o. daily. Ribociclin is on day schedule. She is tolerating it well. At this point her labs are stable. She has had EKG performed every 2 weeks and will receive them every 2 weeks for 4 weeks. Her last EKG was normal without any changes noted. 2. There was also PET/CT evidence of low level activity in association with apparent thickening or soft tissue mass involving the bowel in the right lower quadrant of the abdomen at the level of the terminal ileum or cecum. The significance of that finding is uncertain, but in this setting and with no associated symptoms, further evaluation will be deferred. ADDENDUM: ribociclib dosing corrected Signed By: Shoshana Clark N.P. <<Signature on File>>
== END 2021-11-21 07:50 | disposition home or self-care (01) ==
LOC: ONCMED 07:52
PROVIDERS: PCP Registered Nurse; Visit Provider Nurse Practitioner Family
DX: C50.911 Malignant neoplasm of unspecified site of right female breast (principal); Z17.0 Estrogen receptor positive status [ER+]; Z79.51 Long term (current) use of inhaled steroids; I10 Essential (primary) hypertension; E55.9 Vitamin D deficiency, unspecified; Z86.16 Personal history of COVID-19; Z79.899 Other long term (current) drug therapy
CPT/HCPCS: 36415; 80053; 80061; 85025; 86300; 99214

== ENCOUNTER 2021-12-05 14:29 | Oncology outpatient (recurring) (ONCR) | payer MEDICAID, SELFPAY ==
[2021-12-05] MEDS: denosumab 120 mg SDV SUBCUT (14:30)
[2021-12-05 16:50] VITALS: BP 140/68; PULSE 74; RESP 18; TEMP 36.6
--- NOTE | 2021-12-05 16:55 | ECG_ITS ---
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 Measurements Intervals [place] Rate: 89 P: 22 ME: 175 QRS: 23 QRSD: 90 T: -5 QT: 350 QTc: 428 Interpretive Statements SINUS RHYTHM Compared to ECG 11/09/2021 12:24:03 No significant changes Electronically Signed On 12-05-2021 19:45:33 CDT by Maria Del Carmen Colon M.D. [id number]
== END 2022-01-01 23:59 | disposition home or self-care (01) ==
PROVIDERS: PCP Registered Nurse; Visit Provider Nurse Practitioner Family
DX: Z51.11 Encounter for antineoplastic chemotherapy (principal); C50.411 Malignant neoplasm of upper-outer quadrant of right female breast; C79.51 Secondary malignant neoplasm of bone; Z17.0 Estrogen receptor positive status [ER+]; Z79.818 Long term (current) use of other agents affecting estrogen receptors and estrogen levels; Z79.899 Other long term (current) drug therapy
CPT/HCPCS: 93005; 96372; 96401; 99215; 99999; J0897

== ENCOUNTER 2022-01-31 10:00 | Oncology outpatient (recurring) (ONCR) | payer MEDICAID, SELFPAY ==
[2022-01-02 10:04] LABS: Basophils # 0.1 10^3/uL (0.0-0.1); Basophils % 1.8 %; Eosinophils # 0.1 10^3/uL (0.0-0.8); Eosinophils % 2.1 %; Hematocrit 35.9 % (37.0-47.0); Hemoglobin 11.8 g/dL (11.5-15.3); Lymphocytes # 1.5 10^3/uL (0.8-4.8); Lymphocytes % 38.2 %; Mean Corpuscular HGB Conc 32.9 g/dL (30.0-36.0); Mean Corpuscular Hemoglobin 31.9 pg (28.0-34.0); Mean Platelet Volume 8.5 fL (7.4-10.4); Monocytes # 0.2 10^3/uL (0.2-0.9); Monocytes % 4.7 %; Neutrophils # 2.01 10^3/uL (1.8-7.7); Neutrophils % 52.7 %; Nucleated Red Blood Cells % 0 %; Platelet Count 290 10^3/cmm (130-400); Red Cell Distribution Width 23.3 % (12.1-15.1); White Blood Count 3.8 10^3/uL (4.0-10.0)
[2022-01-02 10:41] LABS: Alanine Aminotransferase 25 U/L (0-33); Albumin Level 4.3 g/dL (3.5-5.2); Alkaline Phosphatase 151 IU/L (35-105); Aspartate Amino Transferase 26 U/L (0-32); Blood Urea Nitrogen 10 mg/dL (6-20); Calcium 9.4 mg/dL (8.5-10.5); Carbon Dioxide 23 mmol/L (22-29); Chloride 104 mmol/L (98-107); Glomerular Filtration Rate 73.4 mL/min (90-130); Glucose 137 mg/dL (65-115); Osmolality Calculated 287 mOsm/kg (285-295); Sodium 138 mmol/L (136-145); Total Bilirubin 0.7 mg/dL (0.15-1.2); Total Protein 7.3 g/dL (6.6-8.7)
[2022-01-02 10:42] LABS: Slide Review Slide Review Perform
[2022-01-02] MEDS: denosumab 120 mg SDV SUBCUT (13:20)
[2022-01-02 13:26] VITALS: BP 173/81; PULSE 71; RESP 18; TEMP 35.9; O2SAT 99
[2022-01-31 11:26] LABS: Alanine Aminotransferase 23 U/L (0-33); Albumin Level 4.2 g/dL (3.5-5.2); Alkaline Phosphatase 140 IU/L (35-105); Anion Gap 14.8 (5-19); Aspartate Amino Transferase 21 U/L (0-32); Blood Urea Nitrogen 13 mg/dL (6-20); Calcium 8.9 mg/dL (8.5-10.5); Carbon Dioxide 26 mmol/L (22-29); Chloride 99 mmol/L (98-107); Globulin 3.3 g/dL (1.3-4.6); Glomerular Filtration Rate 85.6 mL/min (90-130); Glucose 115 mg/dL (65-115); Osmolality Calculated 283 mOsm/kg (285-295); Potassium 3.8 mmol/L (3.5-5.1); Sodium 136 mmol/L (136-145); Total Bilirubin 0.4 mg/dL (0.15-1.2); Total Protein 7.5 g/dL (6.6-8.7)
[2022-01-31] MEDS: denosumab 120 mg SDV SUBCUT (12:12)
[2022-01-31 12:15] VITALS: BP 130/77; PULSE 86; RESP 18; TEMP 36.5; O2SAT 98
[2022-01-31 12:21] LABS: Basophils # 0.2 10^3/uL (0.0-0.1); Basophils % 1.9 %; Eosinophils # 0.1 10^3/uL (0.0-0.8); Eosinophils % 1.3 %; Hematocrit 37.3 % (37.0-47.0); Hemoglobin 12.7 g/dL (11.5-15.3); Lymphocytes # 3.3 10^3/uL (0.8-4.8); Lymphocytes % 38.8 %; Mean Corpuscular Hemoglobin 33.6 pg (28.0-34.0); Mean Corpuscular Volume 98.7 fl (81-99); Mean Platelet Volume 9.1 fL (7.4-10.4); Monocytes # 0.9 10^3/uL (0.2-0.9); Monocytes % 10.8 %; Neutrophils # 3.81 10^3/uL (1.8-7.7); Neutrophils % 44.7 %; Nucleated Red Blood Cells % 0.2 %; Platelet Count 326 10^3/cmm (130-400); Red Blood Count 3.78 10^6/uL (4.1-5.3); Red Cell Distribution Width 20.8 % (12.1-15.1); White Blood Count 8.5 10^3/uL (4.0-10.0)
== END 2022-01-31 23:59 | disposition home or self-care (01) ==
LOC: ONCMED 10:10
PROVIDERS: PCP Registered Nurse; Visit Provider Nurse Practitioner Family
DX: C50.411 Malignant neoplasm of upper-outer quadrant of right female breast (principal); Z17.0 Estrogen receptor positive status [ER+]; C79.51 Secondary malignant neoplasm of bone
CPT/HCPCS: 36415; 80053; 85025; 86300; 96372; 99214; 99215; J0897

== ENCOUNTER 2022-04-03 15:00 | Oncology outpatient (recurring) (ONCR) | payer MEDICAID, SELFPAY ==
[2022-03-04 12:48] LABS: Basophils # 0.1 10^3/uL (0.0-0.1); Eosinophils # 0.1 10^3/uL (0.0-0.8); Eosinophils % 2.5 %; Hematocrit 30.6 % (37.0-47.0); Hemoglobin 9.9 g/dL (11.5-15.3); Lymphocytes # 1.3 10^3/uL (0.8-4.8); Lymphocytes % 35.1 %; Mean Corpuscular HGB Conc 32.4 g/dL (30.0-36.0); Mean Corpuscular Hemoglobin 35.7 pg (28.0-34.0); Mean Corpuscular Volume 110.5 fl (81-99); Mean Platelet Volume 8.8 fL (7.4-10.4); Monocytes # 0.3 10^3/uL (0.2-0.9); Neutrophils # 1.79 10^3/uL (1.8-7.7); Neutrophils % 50.3 %; Nucleated Red Blood Cells % 0 %; Platelet Count 277 10^3/cmm (130-400); Red Blood Count 2.77 10^6/uL (4.1-5.3); Red Cell Distribution Width 15.7 % (12.1-15.1); White Blood Count 3.6 10^3/uL (4.0-10.0)
[2022-03-04 13:22] LABS: Alanine Aminotransferase 19 U/L (0-33); Albumin Level 3.9 g/dL (3.5-5.2); Alkaline Phosphatase 99 IU/L (35-105); Aspartate Amino Transferase 22 U/L (0-32); Blood Urea Nitrogen 12 mg/dL (6-20); Calcium 8.9 mg/dL (8.5-10.5); Carbon Dioxide 22 mmol/L (22-29); Chloride 104 mmol/L (98-107); Globulin 2.8 g/dL (1.3-4.6); Glomerular Filtration Rate 56.7 mL/min (90-130); Glucose 103 mg/dL (65-115); Osmolality Calculated 282 mOsm/kg (285-295); Sodium 136 mmol/L (136-145); Total Bilirubin 0.5 mg/dL (0.15-1.2); Total Protein 6.7 g/dL (6.6-8.7)
[2022-03-04] MEDS: denosumab 120 mg SDV SUBCUT (14:17)
[2022-03-04 14:55] LABS: CA 15-3 39.5 U/mL (0-25)
[2022-04-03] MEDS: denosumab 120 mg SDV SUBCUT (15:39)
[2022-04-03 15:41] VITALS: BP 134/81; PULSE 82; RESP 18; TEMP 36.8; O2SAT 98
[2022-04-03 16:16] VITALS: BP 124/78; PULSE 62; RESP 18; TEMP 36.6; O2SAT 98
== END 2022-04-03 23:59 | disposition home or self-care (01) ==
PROVIDERS: Internal Medicine Medical Oncology; PCP Registered Nurse; Visit Provider Nurse Practitioner Family
DX: C50.411 Malignant neoplasm of upper-outer quadrant of right female breast (principal); Z51.11 Encounter for antineoplastic chemotherapy
CPT/HCPCS: 36415; 80053; 85025; 86300; 96372; 96401; 96402; 99214; J0897

== ENCOUNTER 2022-05-03 11:00 | Oncology outpatient (recurring) (ONCR) | payer MEDICAID, SELFPAY ==
[2022-04-29 12:50] LABS: Basophils # 0.1 10^3/uL (0.0-0.1); Basophils % 2.1 %; Eosinophils # 0.1 10^3/uL (0.0-0.8); Eosinophils % 2.1 %; Hematocrit 33.7 % (37.0-47.0); Hemoglobin 11.1 g/dL (11.5-15.3); Lymphocytes % 27.5 %; Mean Corpuscular HGB Conc 32.9 g/dL (30.0-36.0); Mean Corpuscular Hemoglobin 35.2 pg (28.0-34.0); Mean Platelet Volume 9.3 fL (7.4-10.4); Monocytes # 0.3 10^3/uL (0.2-0.9); Monocytes % 7.4 %; Neutrophils # 2.29 10^3/uL (1.8-7.7); Neutrophils % 60.6 %; Nucleated Red Blood Cells % 0 %; Platelet Count 245 10^3/cmm (130-400); Red Blood Count 3.15 10^6/uL (4.1-5.3); Red Cell Distribution Width 14.6 % (12.1-15.1); White Blood Count 3.8 10^3/uL (4.0-10.0)
[2022-04-29 13:11] LABS: Alanine Aminotransferase 30 U/L (0-33); Albumin Level 4.3 g/dL (3.5-5.2); Alkaline Phosphatase 113 U/L (35-105); Anion Gap 16.9 (5-19); Aspartate Amino Transferase 31 U/L (0-32); Blood Urea Nitrogen 13 mg/dL (8-23); CA 15-3 34.5 U/mL (0-25); Calcium 9.5 mg/dL (8.5-10.5); Carbon Dioxide 23 mmol/L (22-29); Chloride 105 mmol/L (98-107); Globulin 2.8 g/dL (1.3-4.6); Glomerular Filtration Rate 73.2 mL/min (90-130); Glucose 105 mg/dL (65-115); Osmolality Calculated 292 mOsm/kg (285-295); Potassium 3.9 mmol/L (3.5-5.1); Sodium 141 mmol/L (136-145); Total Bilirubin 0.6 mg/dL (0.15-1.2); Total Protein 7.1 g/dL (6.6-8.7)
[2022-05-03] MEDS: denosumab 120 mg SDV SUBCUT (12:00)
== END 2022-05-03 23:59 | disposition home or self-care (01) ==
PROVIDERS: Internal Medicine Medical Oncology; PCP Registered Nurse; Visit Provider Nurse Practitioner Family
DX: C50.411 Malignant neoplasm of upper-outer quadrant of right female breast (principal); Z17.0 Estrogen receptor positive status [ER+]; Z51.11 Encounter for antineoplastic chemotherapy
CPT/HCPCS: 80053; 85025; 86300; 96372; J0897

== ENCOUNTER 2022-06-03 15:06 | Oncology outpatient (recurring) (ONCR) | payer MEDICAID, SELFPAY ==
[2022-06-03 15:23] VITALS: BP 167/76; PULSE 93; RESP 20; TEMP 36.3; O2SAT 96
[2022-06-03] MEDS: denosumab 120 mg SDV SUBCUT (15:29)
== END 2022-06-03 23:59 | disposition home or self-care (01) ==
LOC: ONCMED 15:10
PROVIDERS: PCP Registered Nurse; Visit Provider Nurse Practitioner Family
DX: C50.411 Malignant neoplasm of upper-outer quadrant of right female breast (principal); Z17.0 Estrogen receptor positive status [ER+]; Z51.11 Encounter for antineoplastic chemotherapy
CPT/HCPCS: 96372; J0897

== ENCOUNTER 2022-07-03 14:31 | Oncology outpatient (recurring) (ONCR) | payer MEDICAID, SELFPAY ==
[2022-07-03] MEDS: denosumab 120 mg SDV SUBCUT (14:52)
== END 2022-07-03 23:59 | disposition home or self-care (01) ==
LOC: ONCMED 14:33
PROVIDERS: PCP Registered Nurse; Visit Provider Internal Medicine Medical Oncology
DX: C50.411 Malignant neoplasm of upper-outer quadrant of right female breast (principal); Z17.0 Estrogen receptor positive status [ER+]; C79.51 Secondary malignant neoplasm of bone; Z79.818 Long term (current) use of other agents affecting estrogen receptors and estrogen levels; Z79.899 Other long term (current) drug therapy
CPT/HCPCS: 96372; J0897

== ENCOUNTER 2022-08-01 14:20 | Oncology outpatient (recurring) (ONCR) | payer MEDICAID, SELFPAY ==
[2022-08-01] MEDS: denosumab 120 mg SDV SUBCUT (15:03)
== END 2022-08-03 23:59 | disposition home or self-care (01) ==
LOC: ONCMED 14:21
PROVIDERS: PCP Registered Nurse; Visit Provider Internal Medicine Medical Oncology
DX: C50.411 Malignant neoplasm of upper-outer quadrant of right female breast (principal); Z17.0 Estrogen receptor positive status [ER+]; Z79.899 Other long term (current) drug therapy
CPT/HCPCS: 96372; J0897

== ENCOUNTER 2022-09-09 13:07 | Oncology outpatient (recurring) (ONCR) | payer MEDICAID, SELFPAY ==
[2022-09-09 13:22] LABS: Basophils # 0.1 10^3/uL (0.0-0.1); Basophils % 1.6 %; Eosinophils # 0.1 10^3/uL (0.0-0.8); Eosinophils % 2.1 %; Hematocrit 36.5 % (37.0-47.0); Lymphocytes # 1.4 10^3/uL (0.8-4.8); Lymphocytes % 36.6 %; Mean Corpuscular HGB Conc 32.9 g/dL (30.0-36.0); Mean Corpuscular Hemoglobin 33.9 pg (28.0-34.0); Mean Corpuscular Volume 103.1 fl (81-99); Mean Platelet Volume 9.2 fL (7.4-10.4); Monocytes # 0.3 10^3/uL (0.2-0.9); Monocytes % 6.8 %; Neutrophils # 2.01 10^3/uL (1.8-7.7); Neutrophils % 52.6 %; Nucleated Red Blood Cells % 0 %; Platelet Count 255 10^3/cmm (130-400); Red Blood Count 3.54 10^6/uL (4.1-5.3); Red Cell Distribution Width 13.9 % (12.1-15.1); White Blood Count 3.8 10^3/uL (4.0-10.0)
[2022-09-09 13:32] VITALS: BP 142/80; PULSE 94; RESP 16; TEMP 36.3; O2SAT 95
[2022-09-09] MEDS: denosumab 120 mg SDV SUBCUT (13:40)
[2022-09-09 13:49] LABS: Alanine Aminotransferase 19 U/L (0-33); Albumin Level 4.4 g/dL (3.5-5.2); Alkaline Phosphatase 113 U/L (35-105); Anion Gap 13.8 (5-19); Aspartate Amino Transferase 20 U/L (0-32); Blood Urea Nitrogen 12 mg/dL (8-23); CA 15-3 24.7 U/mL (0-25); Calcium 8.1 mg/dL (8.5-10.5); Carbon Dioxide 24 mmol/L (22-29); Chloride 103 mmol/L (98-107); Globulin 2.7 g/dL (1.3-4.6); Glomerular Filtration Rate 63.9 mL/min (90-130); Glucose 109 mg/dL (65-115); Osmolality Calculated 284 mOsm/kg (285-295); Potassium 3.8 mmol/L (3.5-5.1); Sodium 137 mmol/L (136-145); Total Bilirubin 0.6 mg/dL (0.15-1.2); Total Protein 7.1 g/dL (6.6-8.7)
== END 2022-10-01 23:59 | disposition home or self-care (01) ==
LOC: ONCMED 13:07
PROVIDERS: PCP Registered Nurse; Visit Provider Internal Medicine Medical Oncology
DX: C79.51 Secondary malignant neoplasm of bone (principal); Z79.899 Other long term (current) drug therapy; C50.411 Malignant neoplasm of upper-outer quadrant of right female breast; Z17.0 Estrogen receptor positive status [ER+]
CPT/HCPCS: 36415; 80053; 85025; 86300; 96372; J0897

== ENCOUNTER 2022-10-09 09:20 | Oncology outpatient (recurring) (ONCR) | payer MEDICAID, SELFPAY ==
[2022-10-09 09:54] LABS: Basophils # 0.1 10^3/uL (0.0-0.1); Basophils % 1.9 %; Eosinophils # 0.1 10^3/uL (0.0-0.8); Eosinophils % 2.5 %; Hematocrit 35.7 % (37.0-47.0); Lymphocytes # 1.4 10^3/uL (0.8-4.8); Lymphocytes % 37.7 %; Mean Corpuscular HGB Conc 33.6 g/dL (30.0-36.0); Mean Corpuscular Hemoglobin 34.2 pg (28.0-34.0); Mean Corpuscular Volume 101.7 fl (81-99); Mean Platelet Volume 8.8 fL (7.4-10.4); Monocytes # 0.4 10^3/uL (0.2-0.9); Monocytes % 11.2 %; Neutrophils # 1.69 10^3/uL (1.8-7.7); Neutrophils % 46.2 %; Nucleated Red Blood Cells % 0 %; Platelet Count 256 10^3/cmm (130-400); Red Blood Count 3.51 10^6/uL (4.1-5.3); Red Cell Distribution Width 14.8 % (12.1-15.1); White Blood Count 3.7 10^3/uL (4.0-10.0)
[2022-10-09 10:19] LABS: Alanine Aminotransferase 24 U/L (0-33); Albumin Level 4.3 g/dL (3.5-5.2); Alkaline Phosphatase 107 U/L (35-105); Anion Gap 15.2 (5-19); Aspartate Amino Transferase 27 U/L (0-32); Blood Urea Nitrogen 9 mg/dL (8-23); CA 15-3 24.6 U/mL (0-25); Calcium 8.3 mg/dL (8.5-10.5); Carbon Dioxide 24 mmol/L (22-29); Chloride 104 mmol/L (98-107); Glomerular Filtration Rate 73.2 mL/min (90-130); Glucose 88 mg/dL (65-115); Osmolality Calculated 286 mOsm/kg (285-295); Potassium 4.2 mmol/L (3.5-5.1); Sodium 139 mmol/L (136-145); Total Bilirubin 0.7 mg/dL (0.15-1.2); Total Protein 7.3 g/dL (6.6-8.7)
[2022-10-09] MEDS: denosumab 120 mg SDV SUBCUT (12:09)
== END 2022-11-01 23:59 | disposition home or self-care (01) ==
PROVIDERS: Nurse Practitioner; PCP Registered Nurse; Visit Provider Internal Medicine Medical Oncology
DX: C79.51 Secondary malignant neoplasm of bone (principal); Z79.899 Other long term (current) drug therapy
CPT/HCPCS: 36415; 80053; 85025; 86300; 96401; J0897

== ENCOUNTER → 2022-11-04 12:53 | Outpatient (BNVA) | payer MEDICAID, SELFPAY | PROVIDERS: PCP Registered Nurse; Referring Provider Nurse Practitioner Family; Visit Provider Student in an Organized Health Care Education/Training Program | DX: M65.312 Trigger thumb, left thumb (principal) | CPT/HCPCS: 73130 ==

== ENCOUNTER 2022-11-06 13:24 | Oncology outpatient (recurring) (ONCR) | payer MEDICAID, SELFPAY ==
[2022-11-06 13:58] VITALS: BP 138/78; PULSE 88; TEMP 36.6; O2SAT 98
[2022-11-06] MEDS: denosumab 120 mg SDV SUBCUT (13:59)
== END 2022-12-01 23:59 | disposition home or self-care (01) ==
LOC: ONCMED 13:25
PROVIDERS: PCP Registered Nurse; Visit Provider Internal Medicine Medical Oncology
DX: Z51.11 Encounter for antineoplastic chemotherapy (principal); C79.51 Secondary malignant neoplasm of bone
CPT/HCPCS: 96372; J0897

== ENCOUNTER 2023-01-01 11:30 | Oncology outpatient (recurring) (ONCR) | payer MEDICAID, SELFPAY ==
[2022-12-04] MEDS: denosumab 120 mg SDV SUBCUT (14:14)
[2023-01-01 12:17] VITALS: BP 131/82; PULSE 78; RESP 16; TEMP 36.6; O2SAT 98
[2023-01-01 12:27] LABS: Basophils # 0.1 10^3/uL (0.0-0.1); Basophils % 1.2 %; Eosinophils # 0.1 10^3/uL (0.0-0.8); Hematocrit 34.3 % (37.0-47.0); Hemoglobin 11.6 g/dL (11.5-15.3); Lymphocytes # 1.4 10^3/uL (0.8-4.8); Lymphocytes % 35.6 %; Mean Corpuscular HGB Conc 33.8 g/dL (30.0-36.0); Mean Corpuscular Hemoglobin 34.3 pg (28.0-34.0); Mean Corpuscular Volume 101.5 fl (81-99); Mean Platelet Volume 9.1 fL (7.4-10.4); Monocytes # 0.5 10^3/uL (0.2-0.9); Monocytes % 11.6 %; Neutrophils # 1.99 10^3/uL (1.8-7.7); Neutrophils % 49.1 %; Nucleated Red Blood Cells % 0 %; Platelet Count 233 10^3/cmm (130-400); Red Blood Count 3.38 10^6/uL (4.1-5.3); Red Cell Distribution Width 15.8 % (12.1-15.1); White Blood Count 4.1 10^3/uL (4.0-10.0)
[2023-01-01 13:48] LABS: Alanine Aminotransferase 33 U/L (0-33); Albumin Level 4.1 g/dL (3.5-5.2); Alkaline Phosphatase 103 U/L (35-105); Anion Gap 12.1 (5-19); Aspartate Amino Transferase 26 U/L (0-32); Blood Urea Nitrogen 8 mg/dL (8-23); Calcium 8.4 mg/dL (8.5-10.5); Carbon Dioxide 26 mmol/L (22-29); Chloride 107 mmol/L (98-107); Globulin 2.6 g/dL (1.3-4.6); Glomerular Filtration Rate 85.4 mL/min (90-130); Glucose 97 mg/dL (65-115); Osmolality Calculated 290 mOsm/kg (285-295); Potassium 4.1 mmol/L (3.5-5.1); Sodium 141 mmol/L (136-145); Total Bilirubin 0.5 mg/dL (0.15-1.2); Total Protein 6.7 g/dL (6.6-8.7)
[2023-01-01] MEDS: denosumab 120 mg SDV SUBCUT (14:34)
== END 2023-01-01 23:59 | disposition home or self-care (01) ==
PROVIDERS: Nurse Practitioner Family; PCP Registered Nurse; Visit Provider Internal Medicine Medical Oncology
DX: Z51.11 Encounter for antineoplastic chemotherapy (principal); C79.51 Secondary malignant neoplasm of bone; C50.911 Malignant neoplasm of unspecified site of right female breast
CPT/HCPCS: 36415; 80053; 85025; 86300; 96372; J0897

== ENCOUNTER → 2023-01-09 09:17 | Outpatient (BNVA) | payer MEDICAID, SELFPAY | PROVIDERS: PCP Registered Nurse; Visit Provider Student in an Organized Health Care Education/Training Program | DX: M65.4 Radial styloid tenosynovitis [de Quervain] (principal); M65.312 Trigger thumb, left thumb | CPT/HCPCS: 73130 ==

== ENCOUNTER 2023-01-09 11:23 | Outpatient (CLI) | payer MEDICAID, SELFPAY | END 2023-01-09 11:24 | disposition home or self-care (01) | LOC: SPT 11:23 | PROVIDERS: PCP Registered Nurse; Visit Provider Student in an Organized Health Care Education/Training Program | DX: Z46.89 Encounter for fitting and adjustment of other specified devices (principal); M65.4 Radial styloid tenosynovitis [de Quervain] | CPT/HCPCS: 97760; L3809 ==

== ENCOUNTER 2023-01-31 10:57 | Oncology outpatient (recurring) (ONCR) | payer MEDICAID, SELFPAY ==
[2023-01-31 12:00] VITALS: BP 152/63; PULSE 64; TEMP 36.3; O2SAT 98
[2023-01-31] MEDS: denosumab 120 mg SDV SUBCUT (12:01)
== END 2023-01-31 23:59 | disposition home or self-care (01) ==
PROVIDERS: PCP Registered Nurse; Visit Provider Internal Medicine Medical Oncology
DX: C79.51 Secondary malignant neoplasm of bone (principal)
CPT/HCPCS: 96402; J0897

== ENCOUNTER 2023-04-02 10:30 | Oncology outpatient (recurring) (ONCR) | payer MEDICAID, SELFPAY ==
[2023-03-04 10:24] VITALS: BP 124/79; PULSE 72; RESP 18; TEMP 35.9; O2SAT 98
[2023-03-04] MEDS: denosumab 120 mg SDV SUBCUT (10:45)
[2023-04-02 10:43] VITALS: BP 170/89; PULSE 88; RESP 16; TEMP 35.8; O2SAT 97
[2023-04-02 11:08] LABS: Basophils # 0.1 10^3/uL (0.0-0.1); Basophils % 1.7 %; Eosinophils # 0.1 10^3/uL (0.0-0.8); Eosinophils % 1.7 %; Hematocrit 36.8 % (36-47); Lymphocytes # 1.1 10^3/uL (0.8-4.8); Lymphocytes % 22.2 %; Mean Corpuscular Hemoglobin 35.1 pg (27-33); Mean Corpuscular Volume 103.4 fl (85-98); Mean Platelet Volume 8.9 fL (7.4-10.4); Monocytes # 0.6 10^3/uL (0.2-0.9); Monocytes % 12.4 %; Neutrophils # 2.95 10^3/uL (1.8-7.7); Neutrophils % 61.2 %; Nucleated Red Blood Cells % 0 %; Platelet Count 247 10^3/cmm (157-399); Red Blood Count 3.56 10^6/uL (3.85-5.65); Red Cell Distribution Width 14.3 % (12.1-15.1); White Blood Count 4.82 10^3/uL (3.29-11.43)
[2023-04-02 11:29] LABS: Alanine Aminotransferase 40 U/L (0-33); Albumin Level 4.1 g/dL (3.5-5.2); Alkaline Phosphatase 102 U/L (35-105); Anion Gap 13.2 (5-19); Aspartate Amino Transferase 39 U/L (0-32); Blood Urea Nitrogen 9 mg/dL (8-23); CA 15-3 29.2 U/mL (0-25); Carbon Dioxide 26 mmol/L (22-29); Chloride 104 mmol/L (98-107); Globulin 2.7 g/dL (1.3-4.6); Glomerular Filtration Rate 85.4 mL/min (90-130); Glucose 85 mg/dL (65-115); Osmolality Calculated 286 mOsm/kg (285-295); Potassium 4.2 mmol/L (3.5-5.1); Sodium 139 mmol/L (136-145); Total Bilirubin 0.6 mg/dL (0.15-1.2); Total Protein 6.8 g/dL (6.6-8.7)
[2023-04-02] MEDS: denosumab 120 mg SDV SUBCUT (12:50)
[2023-04-02 13:03] VITALS: BP 142/68; PULSE 69; RESP 17; TEMP 36.1; O2SAT 97
== END 2023-04-03 23:59 | disposition home or self-care (01) ==
PROVIDERS: Nurse Practitioner Family; PCP Registered Nurse; Visit Provider Internal Medicine Medical Oncology
DX: C50.411 Malignant neoplasm of upper-outer quadrant of right female breast (principal); Z53.9 Procedure and treatment not carried out, unspecified reason
CPT/HCPCS: 36415; 80053; 85025; 86300; 96372; J0897

== ENCOUNTER 2023-05-01 11:04 | Oncology outpatient (recurring) (ONCR) | payer MEDICAID, SELFPAY ==
[2023-05-01 11:58] VITALS: BP 138/71; PULSE 84; RESP 18; TEMP 36.6; O2SAT 98
[2023-05-01] MEDS: denosumab 120 mg SDV SUBCUT (11:58)
== END 2023-05-03 23:59 | disposition home or self-care (01) ==
PROVIDERS: PCP Registered Nurse; Visit Provider Internal Medicine Medical Oncology
DX: C79.51 Secondary malignant neoplasm of bone (principal); Z51.11 Encounter for antineoplastic chemotherapy
CPT/HCPCS: 96401; J0897

== ENCOUNTER 2023-06-03 13:14 | Oncology outpatient (recurring) (ONCR) | payer MEDICAID, SELFPAY ==
[2023-06-03] MEDS: denosumab 120 mg SDV SUBCUT (13:46)
[2023-06-03 13:49] VITALS: BP 145/83; PULSE 85; RESP 18; TEMP 36.6; O2SAT 97
== END 2023-06-03 23:59 | disposition home or self-care (01) ==
LOC: ONCMED 13:14
PROVIDERS: PCP Registered Nurse; Visit Provider Internal Medicine Medical Oncology
DX: Z51.11 Encounter for antineoplastic chemotherapy (principal); C79.51 Secondary malignant neoplasm of bone
CPT/HCPCS: 96372; J0897

== ENCOUNTER 2023-07-17 09:07 | Oncology outpatient (recurring) (ONCR) | payer MEDICAID, SELFPAY ==
[2023-07-17 09:42] VITALS: BP 135/87; PULSE 74; RESP 18; TEMP 36.3; O2SAT 97
[2023-07-17 10:01] LABS: Basophils # 0.1 10^3/uL (0.0-0.1); Basophils % 2.5 %; Eosinophils # 0.1 10^3/uL (0.0-0.8); Eosinophils % 1.9 %; Hematocrit 37.2 % (36-47); Lymphocytes # 0.8 10^3/uL (0.8-4.8); Lymphocytes % 24.8 %; Mean Corpuscular HGB Conc 34.1 g/dL (30-55); Mean Corpuscular Hemoglobin 35.4 pg (27-33); Mean Corpuscular Volume 103.6 fl (85-98); Mean Platelet Volume 9.1 fL (7.4-10.4); Monocytes # 0.4 10^3/uL (0.2-0.9); Monocytes % 11.5 %; Nucleated Red Blood Cells % 0 %; Platelet Count 213 10^3/cmm (157-399); Red Blood Count 3.59 10^6/uL (3.85-5.65); Red Cell Distribution Width 14.5 % (12.1-15.1); White Blood Count 3.22 10^3/uL (3.29-11.43)
[2023-07-17 10:21] LABS: Alanine Aminotransferase 33 U/L (0-33); Albumin Level 3.9 g/dL (3.5-5.2); Alkaline Phosphatase 125 U/L (35-105); Aspartate Amino Transferase 35 U/L (0-32); Blood Urea Nitrogen 11 mg/dL (8-23); Calcium 8.7 mg/dL (8.5-10.5); Carbon Dioxide 25 mmol/L (22-29); Chloride 104 mmol/L (98-107); Globulin 2.9 g/dL (1.3-4.6); Glomerular Filtration Rate 72.9 mL/min (90-130); Glucose 112 mg/dL (65-115); Osmolality Calculated 286 mOsm/kg (285-295); Sodium 138 mmol/L (136-145); Total Bilirubin 0.9 mg/dL (0.15-1.2); Total Protein 6.8 g/dL (6.6-8.7)
[2023-07-17 10:25] LABS: Anion Gap 13.1 (5-19); Potassium 4.1 mmol/L (3.5-5.1)
[2023-07-17] MEDS: denosumab 120 mg SDV SUBCUT (12:09)
[2023-07-17 14:54] LABS: CA 15-3 30.3 U/mL (0-25)
== END 2023-08-03 23:59 | disposition home or self-care (01) ==
PROVIDERS: Nurse Practitioner Family; PCP Registered Nurse; Visit Provider Internal Medicine Medical Oncology
DX: Z51.11 Encounter for antineoplastic chemotherapy (principal); C79.51 Secondary malignant neoplasm of bone
CPT/HCPCS: 80053; 85025; 86300; 96372; J0897

== ENCOUNTER 2023-08-27 14:24 | Oncology outpatient (recurring) (ONCR) | payer MEDICAID, SELFPAY ==
[2023-08-27 15:30] VITALS: BP 143/78; PULSE 89; RESP 18; TEMP 36.6; O2SAT 98
[2023-08-27] MEDS: denosumab 120 mg SDV SUBCUT (16:17)
[2023-08-27 16:22] VITALS: BP 154/79; PULSE 86; RESP 18; TEMP 36.6; O2SAT 97
== END 2023-09-03 23:59 | disposition home or self-care (01) ==
PROVIDERS: PCP Registered Nurse; Visit Provider Internal Medicine Medical Oncology
DX: Z51.11 Encounter for antineoplastic chemotherapy (principal); C79.51 Secondary malignant neoplasm of bone
CPT/HCPCS: 96401; J0897

== ENCOUNTER 2023-10-01 14:43 | Oncology outpatient (recurring) (ONCR) | payer MEDICAID, SELFPAY ==
[2023-10-01 15:28] VITALS: BP 149/78; PULSE 98; RESP 16; TEMP 36.6; O2SAT 96
[2023-10-01] MEDS: denosumab 120 mg SDV SUBCUT (15:45)
[2023-10-01 15:49] VITALS: BP 140/78; PULSE 88; RESP 16; TEMP 36.6; O2SAT 97
== END 2023-10-02 23:59 | disposition home or self-care (01) ==
PROVIDERS: PCP Registered Nurse; Visit Provider Internal Medicine Medical Oncology
DX: Z51.11 Encounter for antineoplastic chemotherapy (principal); C79.51 Secondary malignant neoplasm of bone
CPT/HCPCS: 96372; J0897

== ENCOUNTER 2023-10-22 12:50 | Oncology outpatient (recurring) (ONCR) | payer MEDICAID, SELFPAY ==
[2023-10-22 13:11] LABS: Basophils # 0.1 10^3/uL (0.0-0.1); Basophils % 2.7 %; Eosinophils # 0.1 10^3/uL (0.0-0.8); Eosinophils % 2.9 %; Hematocrit 36.2 % (36-47); Lymphocytes # 1.1 10^3/uL (0.8-4.8); Lymphocytes % 25.5 %; Mean Corpuscular HGB Conc 35.6 g/dL (30-55); Mean Corpuscular Hemoglobin 36.1 pg (27-33); Mean Corpuscular Volume 101.4 fl (85-98); Mean Platelet Volume 8.8 fL (7.4-10.4); Monocytes # 0.2 10^3/uL (0.2-0.9); Monocytes % 5.1 %; Neutrophils % 63.1 %; Nucleated Red Blood Cells % 0 %; Platelet Count 325 10^3/cmm (157-399); Red Blood Count 3.57 10^6/uL (3.85-5.65); Red Cell Distribution Width 13.1 % (12.1-15.1); White Blood Count 4.12 10^3/uL (3.29-11.43)
[2023-10-22 13:29] LABS: Slide Review Slide Review Perform
[2023-10-22 13:41] LABS: Alanine Aminotransferase 37 U/L (0-33); Albumin Level 4.1 g/dL (3.5-5.2); Alkaline Phosphatase 226 U/L (35-105); Anion Gap 15.5 (5-19); Aspartate Amino Transferase 35 U/L (0-32); Blood Urea Nitrogen 11 mg/dL (8-23); CA 15-3 35.8 U/mL (0-25); Calcium 9.7 mg/dL (8.5-10.5); Carbon Dioxide 24 mmol/L (22-29); Chloride 104 mmol/L (98-107); Globulin 2.6 g/dL (1.3-4.6); Glomerular Filtration Rate 72.9 mL/min (90-130); Glucose 151 mg/dL (65-115); Osmolality Calculated 290 mOsm/kg (285-295); Potassium 4.5 mmol/L (3.5-5.1); Sodium 139 mmol/L (136-145); Total Bilirubin 0.6 mg/dL (0.15-1.2); Total Protein 6.7 g/dL (6.6-8.7)
== END 2023-11-02 23:59 | disposition home or self-care (01) ==
PROVIDERS: PCP Registered Nurse; Visit Provider Internal Medicine Medical Oncology
DX: C79.51 Secondary malignant neoplasm of bone; C50.411 Malignant neoplasm of upper-outer quadrant of right female breast
CPT/HCPCS: 36415; 80053; 85025; 86300

== ENCOUNTER 2023-12-24 08:44 | Oncology outpatient (recurring) (ONCR) | payer MEDICAID, SELFPAY ==
[2023-12-24 09:02] LABS: Basophils # 0.1 10^3/uL (0.0-0.1); Basophils % 1.9 %; Eosinophils # 0.1 10^3/uL (0.0-0.8); Eosinophils % 1.7 %; Hematocrit 37.6 % (36-47); Lymphocytes # 0.8 10^3/uL (0.8-4.8); Lymphocytes % 17.6 %; Mean Corpuscular HGB Conc 34.6 g/dL (30-55); Mean Corpuscular Hemoglobin 34.7 pg (27-33); Mean Corpuscular Volume 100.3 fl (85-98); Mean Platelet Volume 8.4 fL (7.4-10.4); Monocytes # 0.4 10^3/uL (0.2-0.9); Neutrophils # 3.27 10^3/uL (1.8-7.7); Neutrophils % 70.4 %; Nucleated Red Blood Cells % 0 %; Platelet Count 222 10^3/cmm (157-399); Red Blood Count 3.75 10^6/uL (3.85-5.65); Red Cell Distribution Width 13.5 % (12.1-15.1); White Blood Count 4.65 10^3/uL (3.29-11.43)
[2023-12-24 09:29] LABS: Alanine Aminotransferase 37 U/L (0-33); Albumin Level 4.2 g/dL (3.5-5.2); Alkaline Phosphatase 156 U/L (35-105); Anion Gap 15.6 (5-19); Aspartate Amino Transferase 37 U/L (0-32); Blood Urea Nitrogen 11 mg/dL (8-23); CA 15-3 38.5 U/mL (0-25); Carbon Dioxide 24 mmol/L (22-29); Chloride 101 mmol/L (98-107); Globulin 3.1 g/dL (1.3-4.6); Glomerular Filtration Rate 56.4 mL/min (90-130); Glucose 107 mg/dL (65-115); Osmolality Calculated 282 mOsm/kg (285-295); Potassium 4.6 mmol/L (3.5-5.1); Sodium 136 mmol/L (136-145); Total Bilirubin 0.8 mg/dL (0.15-1.2); Total Protein 7.3 g/dL (6.6-8.7)
== END 2024-01-02 23:59 | disposition home or self-care (01) ==
PROVIDERS: PCP Registered Nurse; Visit Provider Internal Medicine Medical Oncology
DX: C50.411 Malignant neoplasm of upper-outer quadrant of right female breast (principal); C79.51 Secondary malignant neoplasm of bone
CPT/HCPCS: 36415; 80053; 85025; 86300

== ENCOUNTER 2024-03-09 09:28 | Outpatient (CLI) | payer MEDICARE, MEDICAID, SELFPAY ==
--- NOTE | 2024-03-09 | PETR_ITS ---
PROCEDURE INFORMATION: Exam: PET/CT Skull Base to Mid-thigh Exam date and time: 03/09/2024 10:43 AM Age: 63 years old Clinical indication: Condition or disease; Follow-up oncological assessment; Condition/disease: Breast cancer, malignant neoplasm to bone; Additional info: Malignant neoplasm of upper outer quadrant of right female b LABS AND CLINICAL REPORTS: Glucose: 91 mg/dl Treatment strategy for malignancy (PET staging): Restaging (PS) TECHNIQUE: Imaging protocol: Following at least four-hour fasting and following the injection of radiopharmaceutical, low dose CT images were obtained. Then, PET images were obtained. Attenuation corrected images were constructed using the CT scan. Fused images of PET and CT were reviewed. The standardized uptake values (SUV) reported below are maximum values within a region of interest, expressed in gm/ml. Exam includes orbital meatal line to mid-thigh. Radiopharmaceutical: 11.28 mCi F-18 FDG (Fluorodeoxyglucose), IV. Time of imaging post radiopharmaceutical administration: 55 minutes Injection site: Left hand COMPARISON: PT PET Scan 09/18/2021 1:25 PM FINDINGS: Brain: Visualized brain has normal physiologic uptake. Pharynx: No abnormal uptake. Larynx: Symmetric FDG uptake without underlying CT abnormality is likely physiologic. Thyroid: Non FDG avid 1.8 cm hypodense left thyroid nodule on axial image 262 of series 202. Lungs, pleura and trachea: No abnormal uptake. Heart: Normal physiologic uptake. Coronary arteries: Mild coronary artery calcification. Mediastinal space: No abnormal uptake. Diaphragm: Small hiatal hernia. Liver: No abnormal uptake. Gallbladder and biliary ducts: No abnormal uptake. Pancreas: No abnormal uptake. Spleen: No abnormal uptake. Adrenal glands: No abnormal uptake. Kidneys and ureters: Normal physiologic uptake. Stomach and bowel: No abnormal uptake. Vasculature: No abnormal uptake. Mild systemic atherosclerotic calcification without aortic aneurysm. Lymph nodes: No abnormal uptake. No lymphadenopathy in the head, neck, chest, abdomen, pelvis, and extremities. Skeleton: Increased heterogeneous sclerosis throughout the axial and proximal appendicular skeletal system with significantly decreased FDG uptake compared to 2022, now showing patchy [id number] FDG uptake along the axial skeletal system (sparing of the ribs) and imaged proximal appendicular skeletal system with note that left femur uptake extends inferiorly beyond the field of view. Index right distal clavicle shows SUV max of 4.5, previously 12.2 and lateral left scapula shows SUV max of 5.3, previously 11.7. Right posterior superior ilium shows SUV max of 3.7, previously 13.9. Soft tissues: Asymmetric left inner breast slight dermal thickening and FDG uptake showing SUV max of 4.7 on axial image 183 of series 202. Low-level linear FDG uptake along the left triceps muscle without underlying CT abnormality is likely physiologic or strain. Small fat containing umbilical hernia with focal FDG uptake at the slightly thickened dermis showing SUV max of 6.7. Additional areas of low-level FDG uptake at slight dermal thickening along the lower anterior abdominal wall. METRICS: Liver uptake: SUV max of 3.6, SUV mean of 2.9 PET/PET skull to thigh SUBS [id number] IMPRESSION: 1. Osseous findings compatible with good partial treatment response with increased heterogeneous sclerosis throughout the axial and proximal appendicular skeletal system with significantly decreased FDG uptake compatible with some interval healing. 2. Slight FDG avid left inner breast dermal thickening may be infectious or inflammatory. 3. Slight FDG avid umbilical dermal thickening may be inflammatory, as may be areas of mildly metabolic slight dermal thickening along the lower anterior abdominal wall. 4. 1.8 cm non FDG avid left thyroid nodule. Recommend nonemergent thyroid ultrasound.
== END 2024-03-09 09:29 | disposition home or self-care (01) ==
LOC: RAD 09:28
PROVIDERS: PCP Registered Nurse; Visit Provider Internal Medicine Hematology & Oncology
DX: C79.51 Secondary malignant neoplasm of bone (principal)
CPT/HCPCS: 78815; A9552

== ENCOUNTER 2024-04-01 11:31 | Oncology outpatient (recurring) (ONCR) | payer MEDICARE, MEDICAID, SELFPAY ==
[2024-04-01 12:13] LABS: Eosinophils # 0.1 10^3/uL (0.0-0.8); Eosinophils % 2.3 %; Hematocrit 31.7 % (36-47); Lymphocytes # 0.6 10^3/uL (0.8-4.8); Lymphocytes % 19.7 %; Mean Corpuscular HGB Conc 34.1 g/dL (30-55); Mean Corpuscular Hemoglobin 33.5 pg (27-33); Mean Corpuscular Volume 98.4 fl (85-98); Mean Platelet Volume 8.9 fL (7.4-10.4); Monocytes # 0.1 10^3/uL (0.2-0.9); Monocytes % 3.3 %; Neutrophils # 2.22 10^3/uL (1.8-7.7); Nucleated Red Blood Cells % 0 %; Platelet Count 215 10^3/cmm (157-399); Red Blood Count 3.22 10^6/uL (3.85-5.65); Red Cell Distribution Width 14.7 % (12.1-15.1); White Blood Count 3.04 10^3/uL (3.29-11.43)
[2024-04-01 12:44] LABS: Alanine Aminotransferase 26 U/L (0-33); Albumin Level 3.8 g/dL (3.5-5.2); Alkaline Phosphatase 283 U/L (35-105); Anion Gap 18.3 (5-19); Aspartate Amino Transferase 30 U/L (0-32); Blood Urea Nitrogen 10 mg/dL (8-23); CA 15-3 37.9 U/mL (0-25); Calcium 10.4 mg/dL (8.5-10.5); Carbon Dioxide 25 mmol/L (22-29); Chloride 98 mmol/L (98-107); Globulin 3.2 g/dL (1.3-4.6); Glomerular Filtration Rate 45.7 mL/min (90-130); Glucose 186 mg/dL (65-115); Osmolality Calculated 290 mOsm/kg (285-295); Potassium 3.3 mmol/L (3.5-5.1); Sodium 138 mmol/L (136-145)
[2024-04-01 12:51] LABS: Slide Review Slide Review Perform
== END 2024-04-03 23:59 | disposition home or self-care (01) ==
PROVIDERS: Nurse Practitioner Family; PCP Registered Nurse; Visit Provider Internal Medicine Medical Oncology
DX: C50.411 Malignant neoplasm of upper-outer quadrant of right female breast (principal); C79.51 Secondary malignant neoplasm of bone; C50.919 Malignant neoplasm of unspecified site of unspecified female breast; M89.9 Disorder of bone, unspecified
CPT/HCPCS: 36415; 80053; 85025; 86300; 99214

== ENCOUNTER 2024-04-13 10:26 | Oncology outpatient (recurring) (ONCR) | payer MEDICARE, MEDICAID, SELFPAY ==
[2024-04-13 11:13] LABS: Anion Gap 16.7 (5-19); Blood Urea Nitrogen 9 mg/dL (8-23); Calcium 10.3 mg/dL (8.5-10.5); Carbon Dioxide 27 mmol/L (22-29); Chloride 99 mmol/L (98-107); Glomerular Filtration Rate 56.2 mL/min (90-130); Glucose 116 mg/dL (65-115); Osmolality Calculated 288 mOsm/kg (285-295); Potassium 3.7 mmol/L (3.5-5.1); Sodium 139 mmol/L (136-145)
== END 2024-05-03 23:59 | disposition home or self-care (01) ==
PROVIDERS: Nurse Practitioner Family; PCP Registered Nurse; Visit Provider Internal Medicine Medical Oncology
DX: C50.411 Malignant neoplasm of upper-outer quadrant of right female breast (principal); C79.51 Secondary malignant neoplasm of bone; C50.919 Malignant neoplasm of unspecified site of unspecified female breast; M89.9 Disorder of bone, unspecified
CPT/HCPCS: 36415; 80048

== ENCOUNTER 2024-04-29 06:00 | Outpatient (CLI) | payer MEDICARE, MEDICAID, SELFPAY ==
--- NOTE | 2024-04-29 06:15 | US_ITS ---
WS: [id number] ULTRASOUND SOFT TISSUES neck HISTORY: 1.8cm left thyroid nodule COMPARISON: Head CT 03/09/2024 TECHNIQUE: 2-D and color Doppler imaging is submitted. This is a very limited evaluation of the cervical chain and neck structures due to body habitus. No i dentifiable thyroid or abnormality on the RIGHT neck. There is heterogeneous area which is very indis tinct. Heterogeneous area in the LEFT neck is probably the thyroid containing a hypoechoic nodule measuring 1.5 x 0.9 x 1.5 cm. This nodule appears to be within the superior lobe. There is an additional probab ly larger nodule more posterior but very difficult to visualize. US/US soft tissue head neck [id number] IMPRESSION: 1. Extremely limited evaluation of the neck and soft tissue structures. 2. The LEFT thyroid appears enlarged and heterogeneous with multiple nodules. These nodules are difficult to characterize due to patient's body habitus. 3. Study is not sufficient to exclude adenopathy or suspicious mass.
== END 2024-04-29 06:01 | disposition home or self-care (01) ==
PROVIDERS: PCP Registered Nurse; Visit Provider Nurse Practitioner Family
DX: E04.2 Nontoxic multinodular goiter (principal)
CPT/HCPCS: 76536

== ENCOUNTER 2024-08-06 09:00 | Oncology outpatient (recurring) (ONCR) | payer MEDICARE, MEDICAID, SELFPAY ==
[2024-08-06 09:35] LABS: Basophils # 0.1 10^3/uL (0.0-0.1); Basophils % 1.8 %; Eosinophils # 0.1 10^3/uL (0.0-0.8); Eosinophils % 1.6 %; Hematocrit 37.3 % (36-47); Lymphocytes % 21.3 %; Mean Corpuscular HGB Conc 35.4 g/dL (30-55); Mean Corpuscular Volume 98.9 fl (85-98); Mean Platelet Volume 8.8 fL (7.4-10.4); Monocytes # 0.5 10^3/uL (0.2-0.9); Monocytes % 10.4 %; Neutrophils # 3.15 10^3/uL (1.8-7.7); Neutrophils % 64.5 %; Nucleated Red Blood Cells % 0 %; Platelet Count 272 10^3/cmm (157-399); Red Blood Count 3.77 10^6/uL (3.85-5.65); Red Cell Distribution Width 13.2 % (12.1-15.1); White Blood Count 4.89 10^3/uL (3.29-11.43)
[2024-08-06 09:55] LABS: Alanine Aminotransferase 32 U/L (0-33); Albumin Level 4.2 g/dL (3.5-5.2); Alkaline Phosphatase 511 U/L (35-105); Anion Gap 18.2 (5-19); Aspartate Amino Transferase 41 U/L (0-32); Blood Urea Nitrogen 12 mg/dL (8-23); Calcium 10.2 mg/dL (8.5-10.5); Carbon Dioxide 23 mmol/L (22-29); Chloride 102 mmol/L (98-107); Creatinine Clr Calc Pharmacy 74.9975; Globulin 2.9 g/dL (1.3-4.6); Glomerular Filtration Rate 56.2 mL/min (90-130); Glucose 114 mg/dL (65-115); Osmolality Calculated 289 mOsm/kg (285-295); Potassium 4.2 mmol/L (3.5-5.1); Sodium 139 mmol/L (136-145); Total Bilirubin 0.7 mg/dL (0.15-1.2); Total Protein 7.1 g/dL (6.6-8.7)
[2024-08-06 10:25] LABS: CA 15-3 47.8 U/mL (0-25)
[2024-08-06 12:58] LABS: Free T4 Free Thyroxine 1.32 ng/dL (0.82-1.77)
== END 2024-09-03 23:59 | disposition home or self-care (01) ==
PROVIDERS: Nurse Practitioner Family; PCP Registered Nurse; Visit Provider Internal Medicine
DX: C50.411 Malignant neoplasm of upper-outer quadrant of right female breast (principal); Z17.0 Estrogen receptor positive status [ER+]; C79.51 Secondary malignant neoplasm of bone; Z79.899 Other long term (current) drug therapy; K04.7 Periapical abscess without sinus; Z79.811 Long term (current) use of aromatase inhibitors; E04.2 Nontoxic multinodular goiter
CPT/HCPCS: 36415; 80053; 84439; 84443; 85025; 86300; 99214

== ENCOUNTER 2025-01-05 09:39 | Oncology outpatient (recurring) (ONCR) | payer MEDICARE, MEDICAID, SELFPAY ==
[2025-01-05 10:08] LABS: Basophils # 0.1 10^3/uL (0.0-0.1); Basophils % 1.5 %; Eosinophils # 0.1 10^3/uL (0.0-0.8); Eosinophils % 3.3 %; Lymphocytes # 0.8 10^3/uL (0.8-4.8); Lymphocytes % 19.1 %; Mean Corpuscular HGB Conc 34.3 g/dL (30-55); Mean Corpuscular Hemoglobin 34.4 pg (27-33); Mean Corpuscular Volume 100.3 fl (85-98); Mean Platelet Volume 8.7 fL (7.4-10.4); Monocytes # 0.2 10^3/uL (0.2-0.9); Monocytes % 5.3 %; Neutrophils % 70.3 %; Nucleated Red Blood Cells % 0 %; Platelet Count 259 10^3/cmm (157-399); Red Blood Count 3.69 10^6/uL (3.85-5.65); Red Cell Distribution Width 13.4 % (12.1-15.1); White Blood Count 3.98 10^3/uL (3.29-11.43)
[2025-01-05 10:42] LABS: Alanine Aminotransferase 16 U/L (0-33); Albumin Level 3.9 g/dL (3.5-5.2); Alkaline Phosphatase 344 U/L (35-105); Anion Gap 17.6 (5-19); Aspartate Amino Transferase 19 U/L (0-32); Blood Urea Nitrogen 6 mg/dL (8-23); CA 15-3 46.2 U/mL (0-25); Calcium 9.5 mg/dL (8.5-10.5); Carbon Dioxide 23 mmol/L (22-29); Chloride 106 mmol/L (98-107); Glomerular Filtration Rate 72.7 mL/min (90-130); Glucose 104 mg/dL (65-115); Osmolality Calculated 294 mOsm/kg (285-295); Potassium 3.6 mmol/L (3.5-5.1); Sodium 143 mmol/L (136-145); Total Bilirubin 0.7 mg/dL (0.15-1.2); Total Protein 6.9 g/dL (6.6-8.7)
== END 2025-01-31 23:59 | disposition home or self-care (01) ==
PROVIDERS: Nurse Practitioner Family; PCP Registered Nurse; Visit Provider Internal Medicine
DX: C50.411 Malignant neoplasm of upper-outer quadrant of right female breast (principal); Z17.0 Estrogen receptor positive status [ER+]; C79.51 Secondary malignant neoplasm of bone; M89.9 Disorder of bone, unspecified; R03.0 Elevated blood-pressure reading, without diagnosis of hypertension; K08.89 Other specified disorders of teeth and supporting structures; R26.2 Difficulty in walking, not elsewhere classified; R42 Dizziness and giddiness; R21 Rash and other nonspecific skin eruption; Z79.811 Long term (current) use of aromatase inhibitors; Z79.899 Other long term (current) drug therapy
CPT/HCPCS: 36415; 80053; 85025; 86300; 99213

== ENCOUNTER → 2025-02-14 14:33 | Outpatient (BNVA) | payer MEDICARE, MEDICAID, SELFPAY | PROVIDERS: PCP Registered Nurse; Visit Provider Nurse Practitioner Family | DX: L08.9 Local infection of the skin and subcutaneous tissue, unspecified (principal) | CPT/HCPCS: 99203 ==

== ENCOUNTER → 2025-04-25 14:00 | Outpatient (BNVA) | payer MEDICARE, MEDICAID, SELFPAY | PROVIDERS: PCP Registered Nurse; Visit Provider Nurse Practitioner Family | DX: L30.9 Dermatitis, unspecified (principal); L90.5 Scar conditions and fibrosis of skin; D23.39 Other benign neoplasm of skin of other parts of face; D22.5 Melanocytic nevi of trunk; L82.1 Other seborrheic keratosis; L71.8 Other rosacea | CPT/HCPCS: 99213 ==

== ENCOUNTER → 2025-04-29 13:05 | Outpatient (BNVA) | payer MEDICARE, MEDICAID, SELFPAY | PROVIDERS: PCP Registered Nurse; Visit Provider Nurse Practitioner Family | DX: F42.4 Excoriation (skin-picking) disorder (principal); L82.1 Other seborrheic keratosis; L81.4 Other melanin hyperpigmentation; L30.9 Dermatitis, unspecified | CPT/HCPCS: 11104; 99213 ==

== ENCOUNTER → 2025-05-13 09:43 | Outpatient (BNVA) | payer MEDICARE, MEDICAID, SELFPAY | PROVIDERS: PCP Registered Nurse; Visit Provider Nurse Practitioner Family | DX: L27.0 Generalized skin eruption due to drugs and medicaments taken internally (principal); F42.4 Excoriation (skin-picking) disorder | CPT/HCPCS: 99214 ==

== ENCOUNTER 2025-05-20 12:05 | Oncology outpatient (recurring) (ONCR) | payer MEDICARE, MEDICAID, SELFPAY ==
[2025-05-11 11:38] LABS: Hematocrit 40.2 % (36-47); Hemoglobin 13.70 g/dL (11.27-16.99); Mean Corpuscular HGB Conc 34.1 g/dL (30-55); Mean Corpuscular Hemoglobin 34.2 pg (27-33); Mean Corpuscular Volume 100.2 fl (85-98); Nucleated Red Blood Cells % 0 %; Platelet Count 271 10^3/cmm (157-399); Red Blood Count 4.01 10^6/uL (3.85-5.65); White Blood Count 6.25 10^3/uL (3.29-11.43)
[2025-05-11 12:16] LABS: Alanine Aminotransferase 20 U/L (0-33); Albumin Level 4.1 g/dL (3.5-5.2); Alkaline Phosphatase 438 U/L (35-105); Anion Gap 17.2 (5-19); Aspartate Amino Transferase 25 U/L (0-32); Blood Urea Nitrogen 10 mg/dL (8-23); CA 15-3 53.9 U/mL (0-25); Calcium 10.3 mg/dL (8.5-10.5); Carbon Dioxide 22 mmol/L (22-29); Chloride 105 mmol/L (98-107); Creatinine Clr Calc Pharmacy 79.6963; Ferritin 259 ng/mL (15-150); Globulin 3.1 g/dL (1.3-4.6); Glucose 100 mg/dL (65-115); Iron 62 ug/dL (37-145); Osmolality Calculated 289 mOsm/kg (285-295); Potassium 4.2 mmol/L (3.5-5.1); Sodium 140 mmol/L (136-145); Total Iron Binding Capacity 296 mcg/dl; Total Protein 7.2 g/dL (6.6-8.7); Unsaturated Iron Binding 234 ug/dL (112-347); Vitamin B12 703 pg/mL (232-1245)
--- NOTE | 2025-05-20 12:00 | PETR_ITS ---
PROCEDURE INFORMATION: Exam: PET/CT Skull Base to Mid-thigh Exam date and time: 05/20/2025 1:27 PM Age: 65 years old Clinical indication: Condition or disease; Primary cancer: Malignant neoplasm of breast/restaging LABS AND CLINICAL REPORTS: Glucose: 121 mg/dl Treatment strategy for malignancy (PET staging): Restaging (PS) TECHNIQUE: Imaging protocol: Following at least four-hour fasting and following the injection of radiopharmaceutical, low dose CT images were obtained. Then, PET images were obtained. Attenuation corrected images were constructed using the CT scan. Fused images of PET and CT were reviewed. The standardized uptake values (SUV) reported below are maximum values within a region of interest, expressed in gm/ml. Exam includes orbital meatal line to mid-thigh. SUV normalization method: BodyWeight Radiopharmaceutical: 9.88 mCi F-18 FDG (Fluorodeoxyglucose), IV. Time of imaging post radiopharmaceutical administration: 47 minutes Injection site: LEFT HAND COMPARISON: Ultrasound head and neck 04/29/2024, PT PET skull to thigh [id number] 03/09/2024 10:43 AM FINDINGS: Brain: Visualized brain has normal physiologic uptake. Pharynx: No abnormal uptake. Larynx: No abnormal uptake. Thyroid: There is non radiotracer avid nodularity of the left thyroid lobe, likely benign. Lungs, pleura and trachea: No abnormal uptake. Heart: Normal physiologic uptake. Mediastinal space: No abnormal uptake. Liver: No abnormal uptake. Gallbladder and biliary ducts: No abnormal uptake. Pancreas: No abnormal uptake. Spleen: No abnormal uptake. Adrenal glands: No abnormal uptake. Kidneys and ureters: Normal physiologic uptake. Stomach and bowel: No abnormal uptake. Vasculature: No abnormal uptake. There are multifocal regions of atherosclerotic calcification. Lymph nodes: New uptake within right axillary lymph nodes is identified, SUV max 5.8 on PET image 85 within a lymph node measuring 4.0 x [address] image 83. These lymph nodes are minimally increased in size since prior PET-CT and continue to demonstrate fatty jaky. Skeleton: Ill-defined morphologically similar mottled regions of sclerosis throughout the osseous structures are present. Mottled areas in the bilateral iliac bones are noted, greatest in the medial right iliac bone, SUV max 5.2 (previously 3.7) on PET image 181. No discrete correlating lesion is identified. Foci of uptake in the left femoral shaft are noted, SUV max 12.3 on PET image 245, and SUV max 4.6 on PET image 265. Previous SUV max in the proximal left femoral shaft demonstrated an SUV max 6.1. There are areas of decreased uptake within additional areas of osseous metastatic disease. Examples: Low-level uptake is identified within the anterior left 5th rib, SUV max 2.0 (previously 2.2) on CT image 110 without a correlating lesion on the CT images. Previously noted uptake in the distal right clavicle currently demonstrate its SUV max 3.2 (previously 4.5), and previously noted uptake in the left scapula demonstrates an SUV max 3.9 (previously 5.3) on image 59. Soft tissues: Mild uptake within the region of the umbilicus is likely inflammatory, SUV max 3.5 (previously 6.7) on PET image 184, associated with an uncomplicated appearing moderate fat containing umbilical hernia. Previously noted left breast dermal uptake has resolved. METRICS: Mediastinal blood pool: SUV max 3.3, SUV mean 2.7 Liver uptake: SUV max 3.8, SUV mean 2.7 PET/PET skull to thigh [id number] IMPRESSION: 1. Since the prior PET-CT, there has been interval decrease in uptake within some of the previously noted osseous metastatic lesions, for example involving the right clavicle and left scapula. There has been interval increase in uptake in the medial right iliac bone and proximal left femoral shaft. Findings suggest a mixed response to therapy. 2. Right axillary lymph nodes demonstrate new uptake and are slightly increased in size. This uptake may be inflammatory, infectious or malignant in etiology. 3. Decreased, likely inflammatory uptake in the skin surface involving the region of the umbilicus. Interval resolution of previously noted left breast skin uptake. 4. Additional nonurgent findings as detailed above.
== END 2025-06-03 23:59 | disposition home or self-care (01) ==
LOC: RAD 12:05 → ONCMED 12:09
PROVIDERS: PCP Registered Nurse; Visit Provider Internal Medicine
DX: Z53.9 Procedure and treatment not carried out, unspecified reason; C50.411 Malignant neoplasm of upper-outer quadrant of right female breast; M89.8X8 Other specified disorders of bone, other site; R59.0 Localized enlarged lymph nodes; R93.89 Abnormal findings on diagnostic imaging of other specified body structures; K42.9 Umbilical hernia without obstruction or gangrene
CPT/HCPCS: 36415; 78815; 80053; 82607; 82728; 82746; 83540; 83550; 83615; 85025; 86300; 99213; A9552

== ENCOUNTER 2025-06-08 10:48 | Oncology outpatient (recurring) (ONCR) | payer MEDICARE, MEDICAID, SELFPAY ==
[2025-06-08 11:46] LABS: Hematocrit 39.6 % (36-47); Hemoglobin 13.70 g/dL (11.27-16.99); Mean Corpuscular HGB Conc 34.6 g/dL (30-55); Mean Corpuscular Hemoglobin 33.3 pg (27-33); Mean Corpuscular Volume 96.4 fl (85-98); Nucleated Red Blood Cells % 0 %; Platelet Count 263 10^3/cmm (157-399); Red Blood Count 4.11 10^6/uL (3.85-5.65); White Blood Count 5.66 10^3/uL (3.29-11.43)
[2025-06-08 12:05] LABS: Alanine Aminotransferase 17 U/L (0-33); Albumin Level 4.0 g/dL (3.5-5.2); Alkaline Phosphatase 456 U/L (35-105); Anion Gap 15.6 (5-19); Aspartate Amino Transferase 20 U/L (0-32); Blood Urea Nitrogen 9 mg/dL (8-23); Calcium 10.1 mg/dL (8.5-10.5); Carbon Dioxide 24 mmol/L (22-29); Chloride 105 mmol/L (98-107); Globulin 3.1 g/dL (1.3-4.6); Glucose 110 mg/dL (65-115); Osmolality Calculated 291 mOsm/kg (285-295); Potassium 3.6 mmol/L (3.5-5.1); Sodium 141 mmol/L (136-145); Total Protein 7.1 g/dL (6.6-8.7)
== END 2025-07-03 23:59 | disposition home or self-care (01) ==
PROVIDERS: PCP Registered Nurse; Visit Provider Internal Medicine
DX: C50.411 Malignant neoplasm of upper-outer quadrant of right female breast (principal); Z17.0 Estrogen receptor positive status [ER+]; C79.51 Secondary malignant neoplasm of bone; M89.8X9 Other specified disorders of bone, unspecified site; K05.00 Acute gingivitis, plaque induced; Z79.899 Other long term (current) drug therapy
CPT/HCPCS: 36415; 80053; 83615; 85025; 99213